=== PATIENT | male | born 1965 | race Caucasian/White ===

== ENCOUNTER 2016-08-09 08:06 | Emergency (ER) | payer MEDICAID ==
[~2016-08-09] VITALS: Ht 170.2 cm; Wt 77.1 kg
[~2016-08-09 08:06] MED LIST: IBUPROFEN600 MG ORAL; IBUPROFEN600 MG PO; NKM; NYSTATIN CREAM15 GM TOPIC; TYLENOL EXTRA500 MG ORAL
[2016-08-09 08:30] VITALS: BP 137/70
--- NOTE | 2016-08-09 08:48 | Emergency Room Report ---
History of Present Illness General Chief Complaint: Upper Respiratory Illness Source: Patient Present Illness HPI Patient presents with 4 days of upper respiratory symptoms. He had sore throat yesterday. He said the cough has been producing some colored phlegm. He denies any wheezing. He does not smoke. He did not receive a flu vaccination this year. Has muscle aches and has been taking Tylenol and Motrin. The last dose was last night. Denies any nausea vomiting diarrhea dysuria. No skin rashes. Allergies: Coded Allergies: No Known Allergies (Unverified , 05/12/12) Patient History Past Medical History: see triage record Social History: Denies: smoking Social History Narrative works making airplane parts Reviewed Nursing Documentation: PMH: Agreed, PSxH: Agreed Nursing Documentation-PMH Past Medical History: No Stated History Review of Systems All Other Systems: negative except mentioned in HPI Physical Exam Vital Signs Date Time Temp Pulse Resp B/P Pulse Ox O2 Delivery O2 Flow Rate FiO2 08/09/16 08:09 98.2 85 22 137/70 100 Room Air Sp02 EP Interpretation: reviewed, normal General Appearance: well appearing, no apparent distress, GCS 15, non-toxic Head: normocephalic, atraumatic Eyes: bilateral eye PERRL, bilateral eye normal inspection ENT: hearing grossly normal, normal voice, TMs + canals normal, pharyngeal erythema Neck: full range of motion, supple Respiratory: lungs clear, normal breath sounds, no respiratory distress, speaking full sentences Gastrointestinal: normal bowel sounds, non tender, soft Musculoskeletal: back normal, digits/nails normal, gait/station normal, normal range of motion Neurologic: alert, oriented x3, normal gait, grossly normal Psychiatric: mood/affect normal Skin: no rash Medical Decision Making Diagnostic Impression: Primary Impression: Upper respiratory infection Qualified Codes: J06.9 - Acute upper respiratory infection, unspecified ER Course Patient presents with 4 days of URI. DDx: flu, bronchitis, viral process. Exam against pneumonia. Will check flu (though late to tx). Imaging not indicated. Lungs clear. Will treat with tylenol and motrin. Flu negative. Improved with treatment. Patient stable for outpatient observation and treatment. Last Vital Signs Date Time Temp Pulse Resp B/P Pulse Ox O2 Delivery O2 Flow Rate FiO2 08/09/16 10:31 98.2 85 22 137/70 100 Room Air Status: improved Disposition: HOME, SELF-CARE Condition: Improved Scripts Chlorpheniramine Maleate (CHLORPHENIRAMINE MALEATE) 4 Mg Tablet 4 MG ORAL Q6HR Y for congestion, #12 TAB 0 Refills Prov: Christiano Rojas M.D. 08/09/16 Codeine/Promethazine Hcl* (PROMETHAZINE-CODEINE SYRUP*) 118 Ml Syrup 5 ML ORAL Q6H Y for For Cough, #60 ML 0 Refills Prov: Christiano Rojas M.D. 08/09/16 Christiano Rojas M.D. Aug 09, 2016 08:48
[2016-08-09] MEDS ORDERED: PROMETHAZINE-C118 M1 ORAL (10:21)
[2016-08-09] MEDS ORDERED: CHLORPHENIRAMINE4 MG ORAL (10:21)
[2016-08-09 10:31] VITALS: BP 137/70
== END 2016-08-09 10:32 | disposition home or self-care (01) ==
LOC: EMR 08:48
DX: J06.9 Acute upper respiratory infection, unspecified (principal)
CPT/HCPCS: 86710; 99284

== ENCOUNTER 2016-11-03 22:47 | Emergency (ER) | payer MEDICAID ==
[~2016-11-03] VITALS: Ht 172.7 cm; Wt 76.2 kg
[~2016-11-03 22:47] MED LIST changes: +CHLORPHENIRAMINE4 MG ORAL; +PROMETHAZINE-C118 M1 ORAL
[2016-11-03] MEDS ORDERED: PredniSONE 20mg tab ORAL ONE (23:15)
[2016-11-03] MEDS ORDERED: PREDNISONE20 MG ORAL (23:16)
[2016-11-03] MEDS ORDERED: BENADRYL25 MG ORAL (23:16)
--- NOTE | 2016-11-03 23:17 | Emergency Room Report ---
History of Present Illness General Chief Complaint: Skin Rash/Abscess Source: Patient Present Illness HPI Is a 51-year-old male with no significant past medical history. He presents with a rash in itchy. Onset for last couple days. Occurred after eating chocolate. He had this problem before. Before he wasn't as bad. Now rashes worse. Itching is worse. Has not take anything for this. No respiratory complaint. No fever chill. No nausea no vomiting. Allergies: Coded Allergies: No Known Allergies (Unverified , 05/12/12) Patient History Past Medical History: see triage record, old chart reviewed Past Surgical History: other Pertinent Family History: none Social History: Denies: smoking Immunizations: other Reviewed Nursing Documentation: PMH: Agreed, PSxH: Agreed Nursing Documentation-PMH Past Medical History: No Stated History Review of Systems Eye: Denies: blurred vision, eye pain ENT: Denies: ear pain, nose congestion, throat swelling Respiratory: Denies: cough, shortness of breath Cardiovascular: Denies: chest pain, palpitations Gastrointestinal: Denies: abdominal pain, diarrhea, nausea, vomiting Musculoskeletal: Denies: back pain, joint pain Skin: Reports: rash Neurological: Denies: headache, numbness Endocrine: Denies: increased thirst, increased urine Hematologic/Lymphatic: Denies: easy bruising All Other Systems: negative except mentioned in HPI Physical Exam Vital Signs Date Time Temp Pulse Resp B/P Pulse Ox O2 Delivery O2 Flow Rate FiO2 11/03/16 22:57 97.5 78 15 126/77 100 Room Air vitals normal Sp02 EP Interpretation: reviewed, normal General Appearance: well appearing, no apparent distress, alert Head: normocephalic, atraumatic Eyes: bilateral eye EOMI, bilateral eye PERRL ENT: hearing grossly normal, normal pharynx Neck: full range of motion, supple, no meningismus Respiratory: chest non-tender, lungs clear, normal breath sounds Cardiovascular #1: regular rate, rhythm, no murmur Gastrointestinal: normal bowel sounds, non tender, no mass, no organomegaly, no bruit, non-distended Musculoskeletal: back normal, gait/station normal, normal range of motion Neurologic: alert, oriented x3 Psychiatric: mood/affect normal Skin: warm/dry, other - Urticarial rash scattered through body but mostly on back Medical Decision Making Diagnostic Impression: Primary Impression: Allergic reaction to food Qualified Codes: T78.1XXA - Other adverse food reactions, not elsewhere classified, initial encounter ER Course Patient presents with allergic reaction to food, specifically chocolate. Told that he cannot have any more in the future. Not even a little. No evidence of respiratory distress. No evidence of anaphylaxis the Last Vital Signs Date Time Temp Pulse Resp B/P Pulse Ox O2 Delivery O2 Flow Rate FiO2 11/03/16 22:57 97.5 78 15 126/77 100 Room Air Status: improved Disposition: HOME, SELF-CARE Condition: Stable Scripts Prednisone* (PREDNISONE*) 20 Mg Tablet 60 MG ORAL DAILY, #9 TAB Prov: HERNÁN HIGGINBOTHAM M.D. 11/03/16 Diphenhydramine Hcl* (BENADRYL*) 25 Mg Capsule 50 MG ORAL Q6H Y for Itching, #30 CAP Prov: HERNÁN HIGGINBOTHAM M.D. 11/03/16 Additional Instructions: Followup with your DrLennox in 2-3 days. Return if worse. You may be allergy testing to see if you are allergic to certain food. HERNÁN HIGGINBOTHAM M.D. Nov 03, 2016 23:17
[2016-11-03 23:30] VITALS: BP 126/77
== END 2016-11-03 23:30 | disposition home or self-care (01) ==
LOC: EMR 23:13
DX: T78.1XXA Other adverse food reactions, not elsewhere classified, initial encounter (principal); X58.XXXA Exposure to other specified factors, initial encounter; Y92.9 Unspecified place or not applicable; Y99.8 Other external cause status
CPT/HCPCS: 99284

== ENCOUNTER 2020-06-21 18:15 | Inpatient (IN) | payer MEDICAID ==
[~2020-06-21] VITALS: Ht 167.6 cm; Wt 83.0 kg
[~2020-06-21 18:15] MED LIST changes: +BENADRYL25 MG ORAL; +PREDNISONE20 MG ORAL
[2020-06-21 19:00] VITALS: BP 132/88
--- NOTE | 2020-06-21 19:36 | Emergency Room Report ---
History of Present Illness General Chief Complaint: Dyspnea/Respdistress Source: Patient Present Illness HPI Patient presents to the hospital for increasing dyspnea. He tested positive for Covid last week. He has been trying to get by at home but has been unable to sleep. He gets extremely winded when he barely moves about the house. He has had fevers that have been untreatable with just ibuprofen. The patient's had vomiting and also diarrhea. He is able to keep down some liquids. The patient feels extremely anxious. Patient does not smoke. He has no diabetes. He does not know if he has hypertension. No sore throat, chest pain, palpitations, dysuria, abdominal pain, joint pain, rashes, dizziness, headache. 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 family members have tested negative Nursing Documentation-[facility] Past Medical History: No Stated History Review of Systems All Other Systems: negative except mentioned in HPI Physical Exam Vital Signs Date Time Temp Pulse Resp B/P (MAP) Pulse Ox O2 Delivery O2 Flow Rate FiO2 06/21/20 18:36 98.1 92 25 138/84 (102) 93 Room Air 06/21/20 19:00 2.0 98 Sp02 EP Interpretation: reviewed, normal General Appearance: well appearing, GCS 15, mild distress - With dyspnea and anxiety Head: normocephalic Eyes: bilateral eye normal inspection, bilateral eye PERRL, bilateral eye EOMI ENT: normal pharynx, moist mucus membranes Neck: supple Respiratory: no wheezing - Slight expiratory phase increase, crackles Cardiovascular #1: regular rate, rhythm Cardiovascular #2: 2+ radial (R) Gastrointestinal: normal inspection, normal bowel sounds, non tender, no mass, non-distended Genitourinary: no CVA tenderness Musculoskeletal: back normal, normal range of motion, gait/station normal Neurologic: alert, oriented x3, grossly normal Psychiatric: anxious Skin: no rash, warm/dry, other - Fully clothed Procedures Critical Care Time Critical Care Time Total Critical Care Time: 30 min bedside evaluation and treatment excludes procedures (EKG). Reason for critical care: Covid pneumonia, hypoxia, repeat evaluations Possible complications: hypotension, hypertension, [place], shock, arrhythmias, metabolic acidosis, end organ damage, respiratory failure. Interventions: Prednisone, azithromycin, Rocephin, oxygen, Ativan Course: Patient presents with dyspnea 1 week after testing positive for COVID- 19. He is hypoxemic. Evaluation for COVID-19 and inflammatory markers undertaken. Patient treated with dexamethasone, Rocephin and azithromycin after x-ray reveals infiltrates. D-dimer minimally elevated. Discussion with respiratory therapy as patient desaturates in the emergency department on nasal cannula. 100% nonrebreather started. Oxygen saturation 97%. Repeat evaluation without wheezes. Some improvement. Discussion with son. Consultations: nursing staff, EMS, family, respiratory therapy Performed by: Dr. Rojas Tolerated well condition = serious Medical Decision Making Diagnostic Impression: Primary Impression: Pneumonia due to COVID-19 virus Additional Impressions: Hypoxia Hypertension Qualified Codes: I10 - Essential (primary) hypertension ER Course Patient presents with known positive Covid and increasing dyspnea and hypoxia. Differential includes bacterial murmur pneumonia, pneumonia, pulmonary embolus amongst others. Patient evaluated with EKG, chest x-ray and labs. Patient treated with Decadron, losartan, Rocephin and azithromycin. Patient begun. Patient needs admission to the hospital. EKG without injury. CXR with infiltrates, R>L. BP elevated 199/98. Given dose of Cozaar. D dimer slightly elevated. Hold on anticoagulation for further evaluation. Desat on 5 liters. 100% non-rebreather mask. 2250 Laboratory Tests Test 06/21/20 19:25 White Blood Count 8.8 K/UL (4.8-10.8) Red Blood Count 4.58 M/UL (4.70-6.10) L Hemoglobin 14.1 G/DL (14.2-18.0) L Hematocrit 38.5 % (42.0-52.0) L Mean Corpuscular Volume 84 FL (80-99) Mean Corpuscular Hemoglobin 30.7 PG (27.0-31.0) Mean Corpuscular Hemoglobin Concent 36.5 G/DL (32.0-36.0) H Red Cell Distribution Width 13.4 % (11.6-14.8) Platelet Count 242 K/UL (150-450) Mean Platelet Volume 7.4 FL (6.5-10.1) Neutrophils (%) (Auto) 85.0 % (45.0-75.0) H Lymphocytes (%) (Auto) 12.2 % (20.0-45.0) L Monocytes (%) (Auto) 2.4 % (1.0-10.0) Eosinophils (%) (Auto) 0.1 % (0.0-3.0) Basophils (%) (Auto) 0.2 % (0.0-2.0) Prothrombin Time 9.8 SEC (9.30-11.50) Prothrombin Time INR 0.9 (0.9-1.1) Activated Partial Thromboplast Time 33 SEC (23-33) D-Dimer 0.70 mg/L FEU (0.00-0.49) H Sodium Level 131 MMOL/L (136-145) L Potassium Level 3.9 MMOL/L (3.5-5.1) Chloride Level 97 MMOL/L (98-107) L Carbon Dioxide Level 24 MMOL/L (21-32) Anion Gap 10 mmol/L (5-15) Blood Urea Nitrogen 13 mg/dL (7-18) Creatinine 1.0 MG/DL (0.55-1.30) Estimated Glomerular Filtration Rate > 60 mL/min (>60) Glucose Level 213 MG/DL (74-106) H Lactic Acid Level 1.10 mmol/L (0.4-2.0) Calcium Level 8.2 MG/DL (8.5-10.1) L Magnesium Level 2.0 MG/DL (1.8-2.4) Ferritin 640 NG/ML (8-388) H Total Bilirubin < 0.1 MG/DL (0.2-1.0) L Aspartate Amino Transferase (AST) 46 U/L (15-37) H Alanine Aminotransferase (ALT) 39 U/L (12-78) Alkaline Phosphatase 156 U/L (46-116) H Lactate Dehydrogenase 324 U/L (81-234) H Total Creatine Kinase 173 U/L (26-308) Creatine Kinase MB < 0.5 NG/ML (0.0-3.6) Creatine Kinase MB Relative Index 0.2 Troponin I 0.000 ng/mL (0.000-0.056) C-Reactive Protein, Quantitative 18.9 mg/dL (0.00-0.90) H Pro-B-Type Natriuretic Peptide 428 pg/mL (0-125) H Total Protein 7.0 G/DL (6.4-8.2) Albumin 2.3 G/DL (3.4-5.0) L Globulin 4.7 g/dL Albumin/Globulin Ratio 0.5 (1.0-2.7) L Lipase 227 U/L (73-393) Microbiology Date/Time Source Procedure Growth Status 06/21/20 20:35 Nasopharynx SARS-CoV-2 RdRp Gene Assay - Final Complete EKG Diagnostic Results Rate: normal Rhythm: NSR ST Segments: no acute changes Rhythm Strip Diag. Results EP Interpretation: yes Rhythm: NSR, no PVC's, no ectopy Chest X-Ray Diagnostic Results Chest X-Ray Diagnostic Results : Chest X-Ray Ordered: Yes # of Views/Limited/Complete: 1 View Indication: Shortness of Breath EP Interpretation: Yes Interpretation: no effusion, no pneumothorax, other - R > L infiltrates Impression: Other Electronically Signed by: Electronically signed by Christiano Rojas MD Last Vital Signs Date Time Temp Pulse Resp B/P (MAP) Pulse Ox O2 Delivery O2 Flow Rate FiO2 06/22/20 00:20 Non-Rebreather 15.0 06/21/20 23:30 97.9 85 22 134/81 95 06/21/20 19:00 98 Status: improved Disposition: ADMITTED INPATIENT Condition: Serious Scripts No Active Prescriptions or Reported Meds Chrisitano Rojas MD Jun 21, 2020 19:36
[2020-06-21] MEDS ORDERED: Azithromycin 500 MG in NS 275 ML IVPB ONE (19:45)
[2020-06-21] MEDS ORDERED: LORazepam Inj 2mg/ml 1ml IV ONE (19:45)
[2020-06-21] MEDS ORDERED: cefTRIAXone 1 GM in NS 55 ML IV ONE (19:45)
[2020-06-21] MEDS ORDERED: dexAMETHasone 10mg/ml Inj IV ONE (19:45)
[2020-06-21] MEDS ORDERED: Losartan 25mg tab ORAL ONE (19:45)
--- NOTE | 2020-06-21 19:45 | Diagnostic Imaging Report ---
EXAM: XR Chest, 1 View CLINICAL HISTORY: DYSPNEA TECHNIQUE: Frontal view of the chest. COMPARISON: No relevant prior studies available. FINDINGS: Lungs: Patchy bilateral peripherally oriented airspace opacities are demonstrated. This is more extensively involving the right lung, particularly the right lung base. Pleural space: Unremarkable. No pneumothorax. Heart: Unremarkable. No cardiomegaly. Mediastinum: Unremarkable. Bones/joints: Unremarkable. IMPRESSION: Patchy bilateral peripheral airspace opacities, right greater than left. Findings can be seen with atypical infectious process such as viral pneumonia in the appropriate clinical setting. Differential also includes pulmonary edema, malignant process, and pulmonary hemorrhage.
[2020-06-21 19:46] LABS: HEMATOCRIT 38.5 % (42.0-52.0); HEMOGLOBIN 14.1 G/DL (14.2-18.0); MEAN CORPUSCULAR VOLUME 84 FL (80-99); PLATELET COUNT 242 K/UL (150-450); RED BLOOD COUNT 4.58 M/UL (4.70-6.10); RED CELL DISTRIBUTION WIDTH 13.4 % (11.6-14.8); WHITE BLOOD COUNT 8.8 K/UL (4.8-10.8)
[2020-06-21 19:49] LABS: ANION GAP 10 mmol/L (5-15); BLOOD UREA NITROGEN 13 mg/dL (7-18); CALCIUM 8.2 MG/DL (8.5-10.1); CARBON DIOXIDE 24 MMOL/L (21-32); CHLORIDE 97 MMOL/L (98-107); POTASSIUM 3.9 MMOL/L (3.5-5.1); SODIUM 131 MMOL/L (136-145)
[2020-06-21 19:54] LABS: BASOPHILS % (AUTO) 0.2 % (0.0-2.0); EOSINOPHILS % (AUTO) 0.1 % (0.0-3.0); LYMPHOCYTES % (AUTO) 12.2 % (20.0-45.0); MONOCYTES % (AUTO) 2.4 % (1.0-10.0)
[2020-06-21 19:56] LABS: INR 0.9 (0.9-1.1)
[2020-06-21 20:05] LABS: ALANINE AMINOTRANSFERASE 39 U/L (12-78); ALBUMIN 2.3 G/DL (3.4-5.0); ALBUMIN/GLOBULIN RATIO 0.5 (1.0-2.7); ALKALINE PHOSPHATASE 156 U/L (46-116); ASPARTATE AMINO TRANSFERASE 46 U/L (15-37); BILIRUBIN,TOTAL < 0.1 MG/DL (0.2-1.0); CKMB < 0.5 NG/ML (0.0-3.6); CREATINE KINASE 173 U/L (26-308); FERRITIN 640 NG/ML (8-388); LACTATE DEHYDROGENASE 324 U/L (81-234)
[2020-06-21 21:49] VITALS: BP 130/80
[2020-06-21] MEDS ORDERED: guaiFENesin w/Codeine 5ml Liq ud ORAL PRN (23:00)
[2020-06-22] MEDS ORDERED: Acetaminophen 500mg (ES) tab ORAL PRN
[2020-06-22 04:00] VITALS: BP 139/74
[2020-06-22 06:02] LABS: HEMATOCRIT 38.4 % (42.0-52.0); MEAN CORPUSCULAR VOLUME 84 FL (80-99); PLATELET COUNT 256 K/UL (150-450); RED BLOOD COUNT 4.58 M/UL (4.70-6.10); WHITE BLOOD COUNT 8.5 K/UL (4.8-10.8)
--- NOTE | 2020-06-22 07:45 | Consultation ---
DATE OF CONSULTATION: 06/22/2020 PULMONARY CONSULTATION CONSULTING PHYSICIAN: Slava Maravilla MD. HISTORY OF PRESENT ILLNESS: This is a 54-year-old male, who came to the hospital for shortness of breath. The patient has tested positive for COVID. He states he is very short of breath. He has myalgias, fatigue. He also reported vomiting as well as diarrhea. The patient does not have any known past history such as hypertension or diabetes mellitus. HOME MEDICATIONS: Not known. REVIEW OF SYSTEMS: Denies any headaches, hematemesis, melena, hematochezia, night sweats, or weight loss. PHYSICAL EXAMINATION: GENERAL: Reveals a 54-year-old male. VITAL SIGNS: Blood pressure is 130/70, heart rate , respirations 18, O2 saturation 95% non-rebreather mask. HEENT: Unremarkable. LUNGS: Clear breath sounds bilaterally. ABDOMEN: Soft. EXTREMITIES: There is no edema. LABORATORY AND DIAGNOSTIC DATA: Lab testing shows hemoglobin of 14, glucose 213, ferritin 640. AST 46, ALT 324, alkaline phosphatase 156. CRP 18. Coags, D-dimer 0.7. X-ray chest was obtained, which shows bilateral patchy infiltrates. IMPRESSION: 1. COVID-19 pneumonia. 2. Elevated inflammatory markers. 3. Hypoxemia. 4. Hyperglycemia. DISCUSSION: Admit to the hospital. Continue non-rebreather mask. We will initiate Decadron, broad-spectrum antibiotics, IV fluids, Lovenox for DVT prophylaxis. Defer use of remdesivir to ID specialist. We will follow. Slava Maravilla M.D. DR: TAQUERIA JOB#: [id number] CC:
[2020-06-22 08:00] VITALS: BP 128/81
[2020-06-22] MEDS: Enoxaparin 40mg Inj SUBQ SCH (08:27)
[2020-06-22 11:04] LABS: ALANINE AMINOTRANSFERASE 36 U/L (12-78); ALBUMIN 1.9 G/DL (3.4-5.0); ALBUMIN/GLOBULIN RATIO 0.4 (1.0-2.7); ALKALINE PHOSPHATASE 125 U/L (46-116); ANION GAP 10 mmol/L (5-15); ASPARTATE AMINO TRANSFERASE 40 U/L (15-37); BILIRUBIN,TOTAL 0.3 MG/DL (0.2-1.0); BLOOD UREA NITROGEN 18 mg/dL (7-18); CALCIUM 7.7 MG/DL (8.5-10.1); CARBON DIOXIDE 22 MMOL/L (21-32); CHLORIDE 99 MMOL/L (98-107); POTASSIUM 4.3 MMOL/L (3.5-5.1); SODIUM 131 MMOL/L (136-145)
[2020-06-22 12:00] VITALS: BP 117/61
[2020-06-22] MEDS: guaiFENesin 100mg/5ml Liq ud ORAL PRN ×2 (12:08→23:14)
--- NOTE | 2020-06-22 12:31 | Pulmonology Progress Note ---
Subjective Interval Events: none major; subjectively feels better Constitutional: Reports: no symptoms HEENT: Repors: no symptoms Respiratory: Reports: dry cough Cardiovascular: Reports: no symptoms Gastrointestinal/Abdominal: Reports: no symptoms Allergies: Coded Allergies: No Known Allergies (Unverified , 05/12/12) Objective Last 24 Hour Vital Signs Date Time Temp Pulse Resp B/P (MAP) Pulse Ox O2 Delivery O2 Flow Rate FiO2 06/22/20 12:00 97.3 71 19 117/61 (79) 99 06/22/20 09:00 Non-Rebreather 15.0 06/22/20 08:00 97.7 71 18 128/81 (97) 98 06/22/20 04:00 97.8 74 18 139/74 (95) 98 06/22/20 00:20 Non-Rebreather 15.0 06/21/20 23:30 97.9 85 22 134/81 95 Non-Rebreather 15.0 06/21/20 21:49 98.4 82 18 130/80 98 Room Air 06/21/20 20:29 88 18 160/80 98 06/21/20 19:51 95 23 132/88 98 06/21/20 19:51 132/88 06/21/20 19:00 98.1 95 23 132/88 98 Nasal Cannula 2.0 06/21/20 19:00 95 23 Nasal Cannula 2.0 98 06/21/20 18:36 98.1 92 25 138/84 (102) 93 Room Air Intake and Output 06/21/20 06/22/20 18:59 06:59 Intake Total 0 ml Balance 0 ml Intake Oral 0 ml # Voids 2 Objective 06/22/2020 saturating well on NRB 15 L General Appearance: WD/WN, no acute distress HEENT: normocephalic, atraumatic Respiratory: chest wall non-tender, lungs clear Cardiovascular: normal rate, regular rhythm, no gallop/murmur Abdomen: soft, non tender Microbiology Date/Time Source Procedure Growth Status 06/21/20 20:35 Nasopharynx SARS-CoV-2 RdRp Gene Assay - Final Complete Laboratory Tests 06/21/20 19:25: White Blood Count 8.8, Red Blood Count 4.58L, Hemoglobin 14.1L, Hematocrit 38.5L , Mean Corpuscular Volume 84, Mean Corpuscular Hemoglobin 30.7, Mean Corpuscular Hemoglobin Concent 36.5H, Red Cell Distribution Width 13.4, Platelet Count 242, Mean Platelet Volume 7.4, Neutrophils (%) (Auto) 85.0H, Lymphocytes (%) (Auto) 12.2L, Monocytes (%) (Auto) 2.4, Eosinophils (%) (Auto) 0.1, Basophils (%) (Auto) 0.2, Prothrombin Time 9.8, Prothromb Time International Ratio 0.9, Activated Partial Thromboplast Time 33, D-Dimer 0.70H, Sodium Level 131L, Potassium Level 3.9, Chloride Level 97L, Carbon Dioxide Level 24, Anion Gap 10, Blood Urea Nitrogen 13, Creatinine 1.0, Estimat Glomerular Filtration Rate > 60, Glucose Level 213H, Lactic Acid Level 1.10, Calcium Level 8.2L, Magnesium Level 2.0, Ferritin 640H, Total Bilirubin < 0.1L, Aspartate Amino Transf (AST/SGOT) 46H, Alanine Aminotransferase (ALT/SGPT) 39, Alkaline Phosphatase 156H, Lactate Dehydrogenase 324H, Total Creatine Kinase 173, Creatine Kinase MB < 0.5, Creatine Kinase MB Relative Index 0.2, Troponin I 0.000, C-Reactive Protein, Quantitative 18.9H, Pro-B-Type Natriuretic Peptide 428H, Total Protein 7.0, Albumin 2.3L, Globulin 4.7, Albumin/Globulin Ratio 0.5L, Lipase 227 06/22/20 04:25: White Blood Count 8.5, Red Blood Count 4.58L, Hemoglobin 14.0L, Hematocrit 38.4L , Mean Corpuscular Volume 84, Mean Corpuscular Hemoglobin 30.6, Mean Corpuscular Hemoglobin Concent 36.5H, Red Cell Distribution Width 13.0, Platelet Count 256, Mean Platelet Volume 6.8, Neutrophils (%) (Auto) , Lymphocytes (%) (Auto) , Monocytes (%) (Auto) , Eosinophils (%) (Auto) , Basophils (%) (Auto) , Differential Total Cells Counted 100, Neutrophils % (Manual) 89H, Lymphocytes % (Manual) 9L, Monocytes % (Manual) 2, Eosinophils % (Manual) 0, Basophils % (Manual) 0, Band Neutrophils 0, Platelet Estimate Adequate, Platelet Morphology Normal, Red Blood Cell Morphology Normal 06/22/20 09:15: Sodium Level 131L, Potassium Level 4.3, Chloride Level 99, Carbon Dioxide Level 22, Anion Gap 10, Blood Urea Nitrogen 18, Creatinine 1.0, Estimat Glomerular Filtration Rate > 60, Glucose Level 371#H, Calcium Level 7.7L, Total Bilirubin 0.3, Aspartate Amino Transf (AST/SGOT) 40H, Alanine Aminotransferase (ALT/SGPT) 36, Alkaline Phosphatase 125H, Total Protein 6.3L, Albumin 1.9L, Globulin 4.4, Albumin/Globulin Ratio 0.4L Current Medications Medications (Trade) Dose Ordered Sig/Swetha Route PRN Reason Start Time Stop Time Status Last Admin Dose Admin Acetaminophen (Tylenol) 500 mg Q4H PRN ORAL Mild Pain (Pain Scale 1-3) 06/22/20 00:00 07/22/20 00:00 Dexamethasone Sodium Phosphate (Decadron 4mg/ml vial) 6 mg DAILY IVP 06/22/20 09:00 09/20/20 08:59 06/22/20 08:26 Enoxaparin Sodium (Lovenox) 40 mg DAILY SUBQ 06/22/20 09:00 09/20/20 08:59 06/22/20 08:27 Guaifenesin (Robitussin) 100 mg Q4H PRN ORAL For Cough 06/22/20 11:45 09/20/20 11:44 06/22/20 12:08 Assessment/Plan Assessment/Plan 1. COVID-19 pneumonia. - CXR 06/21/2020 Patchy bilateral peripheral airspace opacities, right greater than left. - Cont NRB mask - on Decadron - on broad-spectrum Abx - On IVF -Defer use of remdesivir to ID specialist 2. Elevated inflammatory markers. 3. Hypoxemia. 4. Hyperglycemia. DVT PPx -Lovenox We will follow. The care of this patient was discussed with my supervising physician Time spent for this encounter was approximately 31 minutes The patient was seen and examined at bedside and all new and available data was reviewed in the patients chart. I agree with the above findings, impression, and plan. (Patient was seen earlier today. Signature timestamp does not reflect patient encounter time) Colt Flores MD Jun 22, 2020 12:31 Slava Maravilla MD Jun 22, 2020 18:20
[2020-06-22 16:00] VITALS: BP 133/71
[2020-06-22] MEDS ORDERED: Loading Dose:Remdesivir 200mg/NS 210ml IV SCH ×2 (18:00)
--- NOTE | 2020-06-22 18:45 | Consultation ---
DATE OF CONSULTATION: 06/22/2020 INFECTIOUS DISEASE CONSULT PRIMARY ATTENDING PHYSICIAN: Aidan Bowman M.D. REASON FOR CONSULT: COVID-19 pneumonia. HISTORY OF PRESENT ILLNESS: The patient is a 54-year-old male admitted yesterday from home complaining of shortness of breath. He was tested positive for COVID since last week. He had fatigue, malaise, diarrhea. He was found to be hypoxemic and hyperglycemic. PAST MEDICAL HISTORY: The patient denies any medical history. ALLERGIES: No known drug allergies. MEDICATIONS: Enoxaparin, dexamethasone, thiamin, guaifenesin. Got a dose of ceftriaxone and azithromycin in the ER. SOCIAL HISTORY: . Denies alcohol, drug abuse, or smoking. REVIEW OF SYSTEMS: As history of present illness. PHYSICAL EXAMINATION: VITAL SIGNS: Temperature 97.3, pulse 71, blood pressure 117/61. GENERAL APPEARANCE: Well developed. HEAD AND NECK: [place] conjunctivae. HEART: Normal rate. LUNGS: Decreased sounds. Getting oxygen at 15 L/min. ABDOMEN: Obese, soft. EXTREMITIES: No edema. NEUROLOGIC: He is awake, alert, oriented x3. LABORATORY AND DIAGNOSTIC DATA: WBC 8.5, hemoglobin 14.0, hematocrit 38.4, platelets 256. Sodium 131, potassium 4.3, chloride 99, bicarb 22, BUN 18, creatinine 1, glucose is 371, AST 40, ALT 36, alkaline phosphatase is 125. Albumin is 1.9. IMPRESSION: 1. COVID-19 disease, seems severe. The patient is hypoxemic. 2. Hyperglycemia, likely underlying diabetes mellitus. 3. Hypertension. 4. Hyponatremia. 5. Lymphopenia. RECOMMENDATIONS: Continue dexamethasone. We will start remdesivir. Consider hypoglycemic agent. We will follow up the clinical course. At the end of my exam, I thank Dr. Bowman for involving me in the care of this patient. Stevenson Buckley M.D. DR: IRINA JOB#: [id number] CC:
[2020-06-22 20:00] VITALS: BP 124/78
--- NOTE | 2020-06-22 21:30 | History and Physical Report ---
DATE OF ADMISSION: 06/21/2020 HISTORY OF PRESENT ILLNESS: The patient comes with increasing dyspnea. The patient was positive for coronavirus apparently about a week ago. The patient also had elevated D-dimer. The patient could not stay at home due to shortness of breath. He is short-winded. The patient also has fever and chills, was admitted for COVID-positive pneumonia. PAST MEDICAL HISTORY: Recent history of COVID. He has a history of hypertension. PAST SURGICAL HISTORY: None. ALLERGIES: No known allergies. MEDICATIONS: None. FAMILY HISTORY: Noncontributory. SOCIAL HISTORY: Denies history of smoking. Denies history of alcohol or illicit drugs. REVIEW OF SYSTEMS: HEENT: Denies headaches. RESPIRATORY: Reports shortness of breath and cough. CARDIOVASCULAR: Denies chest pain or orthopnea. GASTROINTESTINAL: Denies nausea, vomiting, or diarrhea. EXTREMITIES: Denies pain. NEUROLOGIC: Denies change in speech pattern. Feels weak, generalized. PHYSICAL EXAMINATION: VITAL SIGNS: Temperature 97.8, pulse 74, blood pressure 139/74. HEENT: PERRLA. CHEST: Clear to auscultation. CARDIOVASCULAR: Regular rate and rhythm. No murmurs or extra sounds. GASTROINTESTINAL: Soft, nontender, nondistended. No organomegaly. EXTREMITIES: No edema. He is able to move his extremities. Reflexes in both sides. LABORATORY DATA: WBC of 8.8, hemoglobin of 14.1, platelets of 242. Sodium 131, potassium of 3.9, BUN of 13, creatinine 1, glucose of 213. ASSESSMENT AND PLAN: Respiratory insufficiency, COVID-positive pneumonia, elevated D-dimer, and oxygen. I have consulted Dr. Slava Maravilla, Dr. Stevenson Buckley, Dr. Rebel Lainez for the management of the elevated D-dimer as well as for management of COVID pneumonia. Antibiotics per Dr. Buckley. Aidan Bwoman M.D. DR: MICHEAL JOB#: [id number] CC:
[2020-06-23] VITALS: BP 123/70
[2020-06-23 04:00] VITALS: BP 121/68
[2020-06-23 07:06] LABS: BASOPHILS % (AUTO) 0.2 % (0.0-2.0); EOSINOPHILS % (AUTO) 0.1 % (0.0-3.0); HEMATOCRIT 38.1 % (42.0-52.0); HEMOGLOBIN 13.6 G/DL (14.2-18.0); LYMPHOCYTES % (AUTO) 9.9 % (20.0-45.0); MEAN CORPUSCULAR VOLUME 85 FL (80-99); MONOCYTES % (AUTO) 6.5 % (1.0-10.0); NEUTROPHILS % (AUTO) 83.5 % (45.0-75.0); PLATELET COUNT 308 K/UL (150-450); RED CELL DISTRIBUTION WIDTH 13.9 % (11.6-14.8); WHITE BLOOD COUNT 9.8 K/UL (4.8-10.8)
[2020-06-23 07:19] LABS: ALANINE AMINOTRANSFERASE 39 U/L (12-78); ALBUMIN/GLOBULIN RATIO 0.5 (1.0-2.7); ALKALINE PHOSPHATASE 154 U/L (46-116); ANION GAP 10 mmol/L (5-15); ASPARTATE AMINO TRANSFERASE 36 U/L (15-37); BILIRUBIN,TOTAL 0.4 MG/DL (0.2-1.0); BLOOD UREA NITROGEN 26 mg/dL (7-18); CALCIUM 8.5 MG/DL (8.5-10.1); CARBON DIOXIDE 23 MMOL/L (21-32); CHLORIDE 100 MMOL/L (98-107); POTASSIUM 4.3 MMOL/L (3.5-5.1); SODIUM 133 MMOL/L (136-145)
[2020-06-23 08:00] VITALS: BP 125/71
[2020-06-23] MEDS: Enoxaparin 40mg Inj SUBQ SCH (10:02)
[2020-06-23 12:00] VITALS: BP 120/69
--- NOTE | 2020-06-23 12:51 | Pulmonology Progress Note ---
Subjective Interval Events: none major; subjectively feels better Constitutional: Reports: no symptoms HEENT: Repors: no symptoms Respiratory: Reports: dry cough - improving Cardiovascular: Reports: no symptoms Gastrointestinal/Abdominal: Reports: no symptoms Allergies: Coded Allergies: No Known Allergies (Unverified , 05/12/12) Objective Last 24 Hour Vital Signs Date Time Temp Pulse Resp B/P (MAP) Pulse Ox O2 Delivery O2 Flow Rate FiO2 06/23/20 09:00 Non-Rebreather 15.0 06/23/20 08:00 98.2 84 18 125/71 (89) 95 06/23/20 04:00 98.2 85 18 121/68 (85) 92 06/23/20 00:00 98.4 85 18 123/70 (87) 96 06/22/20 21:00 Non-Rebreather 15.0 06/22/20 20:00 98.2 85 18 124/78 (93) 95 06/22/20 16:00 98.2 74 18 133/71 (91) 98 Intake and Output 06/22/20 06/23/20 19:00 07:00 Intake Total 350 ml 750 ml Balance 350 ml 750 ml Intake Oral 350 ml 750 ml # Voids 3 4 Objective 06/22/2020 saturating well on NRB 12L; s/p failed attempt of 4 lpm NC, desaturated down to 89-90%, per RN; cont attempt weaning down oxygen while keeping SaO2 >92% 06/23/2020 saturating well on NRB 12L; s/p failed attempt of 4 lpm NC, desaturated down to 89-90%, per RN; cont attempt weaning down oxygen while marshall ping SaO2 >92% 06/22/2020 saturating well on NRB 15 L General Appearance: WD/WN, no acute distress HEENT: normocephalic, atraumatic Respiratory: chest wall non-tender, lungs clear Cardiovascular: normal rate, regular rhythm, no gallop/murmur Abdomen: soft, non tender Microbiology Date/Time Source Procedure Growth Status 06/21/20 20:35 Nasopharynx SARS-CoV-2 RdRp Gene Assay - Final Complete Laboratory Tests 06/23/20 04:15: White Blood Count 9.8, Red Blood Count 4.50L, Hemoglobin 13.6L, Hematocrit 38.1L , Mean Corpuscular Volume 85, Mean Corpuscular Hemoglobin 30.2, Mean Corpuscular Hemoglobin Concent 35.7, Red Cell Distribution Width 13.9, Platelet Count 308, Mean Platelet Volume 6.8, Neutrophils (%) (Auto) 83.5H, Lymphocytes (%) (Auto) 9.9L, Monocytes (%) (Auto) 6.5, Eosinophils (%) (Auto) 0.1, Basophils (%) (Auto) 0.2, Sodium Level 133L, Potassium Level 4.3, Chloride Level 100, Carbon Dioxide Level 23, Anion Gap 10, Blood Urea Nitrogen 26H, Creatinine 1.0, Estimat Glomerular Filtration Rate > 60, Glucose Level 462H, Hemoglobin A1c 10.7H, Ca lcium Level 8.5, Total Bilirubin 0.4, Direct Bilirubin < 0.1, Aspartate Amino Transf (AST/SGOT) 36, Alanine Aminotransferase (ALT/SGPT) 39, Alkaline Phosphatase 154H, Total Protein 6.4, Albumin 2.0L, Globulin 4.4, Albumin/Globulin Ratio 0.5L Current Medications Medications (Trade) Dose Ordered Sig/Swetha Route PRN Reason Start Time Stop Time Status Last Admin Dose Admin Acetaminophen (Tylenol) 500 mg Q4H PRN ORAL Mild Pain (Pain Scale 1-3) 06/22/20 00:00 07/22/20 00:00 Dexamethasone Sodium Phosphate (Decadron 4mg/ml vial) 6 mg DAILY IVP 06/22/20 09:00 06/30/20 09:01 06/23/20 10:02 Enoxaparin Sodium (Lovenox) 40 mg DAILY SUBQ 06/22/20 09:00 09/20/20 08:59 06/23/20 10:02 Guaifenesin (Robitussin) 100 mg Q4H PRN ORAL For Cough 06/22/20 11:45 09/20/20 11:44 06/22/20 23:14 Remdesivir 100 mg/ Sodium Chloride 250 ml @ 250 mls/hr Q24H IV 06/23/20 18:00 06/26/20 18:59 Assessment/Plan Assessment/Plan 1. COVID-19 pneumonia. - CXR 06/21/2020 Patchy bilateral peripheral airspace opacities, right greater than left. - saturating well on NRB 12L; s/p failed attempt of 4 lpm NC, desaturated down to 89-90%, per RN; cont attempt weaning down oxygen while keeping SaO2 >92% - on Decadron - s/p broad-spectrum Abx - Defer use of remdesivir to ID specialist 2. Elevated inflammatory markers. 3. Hypoxemia. 4. Hyperglycemia. DVT PPx -Lovenox We will follow. The care of this patient was discussed with my supervising physician Time spent for this encounter was approximately 31 minutes The patient was seen and examined at bedside and all new and available data was reviewed in the patients chart. I agree with the above findings, impression, and plan. (Patient was seen earlier today. Signature timestamp does not reflect patient encounter time) Colt Flores MD Jun 23, 2020 12:51 Slava Maravilla MD Jun 23, 2020 16:54
[2020-06-23 16:00] VITALS: BP 122/77
[2020-06-23] MEDS: Maintenance Dose:Remdesivir 100mg/NS 230ml x 4 Doses IV SCH ×2 (18:18)
[2020-06-23 20:00] VITALS: BP 135/70
[2020-06-23] MEDS: guaiFENesin 100mg/5ml Liq ud ORAL PRN (21:37)
--- NOTE | 2020-06-23 22:31 | General Progress Note ---
Subjective ROS Limited/Unobtainable: Yes Allergies: Coded Allergies: No Known Allergies (Unverified , 05/12/12) Objective Last 24 Hour Vital Signs Date Time Temp Pulse Resp B/P (MAP) Pulse Ox O2 Delivery O2 Flow Rate FiO2 06/23/20 21:00 Non-Rebreather 15.0 06/23/20 20:00 97.5 72 18 135/70 (91) 92 06/23/20 16:15 94 06/23/20 16:00 97.5 72 18 122/77 (92) 90 06/23/20 12:00 96.9 76 18 120/69 (86) 95 06/23/20 09:00 Non-Rebreather 15.0 06/23/20 08:00 98.2 84 18 125/71 (89) 95 06/23/20 04:00 98.2 85 18 121/68 (85) 92 06/23/20 00:00 98.4 85 18 123/70 (87) 96 Intake and Output 06/22/20 06/23/20 19:00 07:00 Intake Total 350 ml 750 ml Balance 350 ml 750 ml Intake Oral 350 ml 750 ml # Voids 3 4 Laboratory Tests 06/23/20 04:15: White Blood Count 9.8, Red Blood Count 4.50L, Hemoglobin 13.6L, Hematocrit 38.1L , Mean Corpuscular Volume 85, Mean Corpuscular Hemoglobin 30.2, Mean Corpuscular Hemoglobin Concent 35.7, Red Cell Distribution Width 13.9, Platelet Count 308, Mean Platelet Volume 6.8, Neutrophils (%) (Auto) 83.5H, Lymphocytes (%) (Auto) 9.9L, Monocytes (%) (Auto) 6.5, Eosinophils (%) (Auto) 0.1, Basophils (%) (Auto) 0.2, Sodium Level 133L, Potassium Level 4.3, Chloride Level 100, Carbon Dioxide Level 23, Anion Gap 10, Blood Urea Nitrogen 26H, Creatinine 1.0, Estimat Glomerular Filtration Rate > 60, Glucose Level 462H, Hemoglobin A1c 10.7H, Calcium Level 8.5, Total Bilirubin 0.4, Direct Bilirubin < 0.1, Aspartate Amino Transf (AST/SGOT) 36, Alanine Aminotransferase (ALT/SGPT) 39, Alkaline Phosphatase 154H, Total Protein 6.4, Albumin 2.0L, Globulin 4.4, Albumin/Globulin Ratio 0.5L Height (Feet): 5 Height (Inches): 6.00 Weight (Pounds): 183 Assessment/Plan Problem List: (1) Hypoxia ICD Codes: R09.02 - Hypoxemia; J12.89 - Other viral pneumonia SNOMED: 475996041 (2) Pneumonia due to COVID-19 virus ICD Codes: U07.1 - COVID-19; J12.89 - Other viral pneumonia SNOMED: 751177409329969804 (3) Hypertension ICD Codes: I10 - Essential (primary) hypertension SNOMED: 51468306 Qualifiers: Qualified Codes: I10 - Essential (primary) hypertension (4) Upper respiratory infection ICD Codes: J06.9 - Acute upper respiratory infection, unspecified SNOMED: 02025026 Status: progressing Assessment/Plan: afebrile covid positive pna resp insuff weak prn supportive rx Aidan Bowman MD Jun 23, 2020 22:31
[2020-06-24] VITALS: BP 127/72
[2020-06-24 04:00] VITALS: BP 124/78
[2020-06-24 07:08] LABS: BASOPHILS % (AUTO) 0.4 % (0.0-2.0); EOSINOPHILS % (AUTO) 0.1 % (0.0-3.0); HEMOGLOBIN 14.6 G/DL (14.2-18.0); LYMPHOCYTES % (AUTO) 13.5 % (20.0-45.0); MEAN CORPUSCULAR VOLUME 88 FL (80-99); MONOCYTES % (AUTO) 8.8 % (1.0-10.0); NEUTROPHILS % (AUTO) 77.3 % (45.0-75.0); PLATELET COUNT 365 K/UL (150-450); RED BLOOD COUNT 4.79 M/UL (4.70-6.10); RED CELL DISTRIBUTION WIDTH 12.3 % (11.6-14.8); WHITE BLOOD COUNT 10.2 K/UL (4.8-10.8)
[2020-06-24 07:55] LABS: ALANINE AMINOTRANSFERASE 41 U/L (12-78); ALBUMIN 2.3 G/DL (3.4-5.0); ALBUMIN/GLOBULIN RATIO 0.5 (1.0-2.7); ALKALINE PHOSPHATASE 144 U/L (46-116); ANION GAP 10 mmol/L (5-15); ASPARTATE AMINO TRANSFERASE 28 U/L (15-37); BILIRUBIN,DIRECT 0.1 MG/DL (0.0-0.3); BILIRUBIN,TOTAL 0.5 MG/DL (0.2-1.0); BLOOD UREA NITROGEN 27 mg/dL (7-18); CALCIUM 9.2 MG/DL (8.5-10.1); CARBON DIOXIDE 24 MMOL/L (21-32); CHLORIDE 99 MMOL/L (98-107); CREATININE 0.9 MG/DL (0.55-1.30); POTASSIUM 4.2 MMOL/L (3.5-5.1); SODIUM 133 MMOL/L (136-145)
[2020-06-24 08:00] VITALS: BP 120/89
[2020-06-24] MEDS: Enoxaparin 40mg Inj SUBQ SCH (09:27)
--- NOTE | 2020-06-24 10:42 | Pulmonology Progress Note ---
Subjective ROS Limited/Unobtainable: Yes Interval Events: now on Venturi mask 55% FiO2 15L saturating at 92-94% Constitutional: Reports: no symptoms HEENT: Repors: no symptoms Respiratory: Reports: dry cough - improving Cardiovascular: Reports: no symptoms Gastrointestinal/Abdominal: Reports: no symptoms Allergies: Coded Allergies: No Known Allergies (Unverified , 05/12/12) Objective Last 24 Hour Vital Signs Date Time Temp Pulse Resp B/P (MAP) Pulse Ox O2 Delivery O2 Flow Rate FiO2 06/24/20 08:00 97.3 70 20 120/89 (99) 94 06/24/20 04:00 97.5 74 20 124/78 (93) 92 06/24/20 00:00 97.1 72 21 127/72 (90) 92 06/23/20 21:00 Venturi Mask 15.0 06/23/20 20:00 97.5 72 18 135/70 (91) 92 06/23/20 16:15 94 06/23/20 16:00 97.5 72 18 122/77 (92) 90 06/23/20 12:00 96.9 76 18 120/69 (86) 95 Intake and Output 06/23/20 06/24/20 19:00 07:00 Intake Total 1650 ml Balance 1650 ml Intake Oral 850 ml Other 800 ml # Voids 3 # Bowel Movements 1 Objective 06/22/2020 saturating well on NRB 12L; s/p failed attempt of 4 lpm NC, desaturated down to 89-90%, per RN; cont attempt weaning down oxygen while keeping SaO2 >92% 06/23/2020 saturating well on NRB 12L; s/p failed attempt of 4 lpm NC, desaturated down to 89-90%, per RN; cont attempt weaning down oxygen while keeping SaO2 >92% 06/22/2020 saturating well on NRB 15 L General Appearance: WD/WN, no acute distress HEENT: normocephalic, atraumatic Respiratory: chest wall non-tender, lungs clear Cardiovascular: normal rate, regular rhythm, no gallop/murmur Abdomen: soft, non tender Microbiology Date/Time Source Procedure Growth Status 06/21/20 20:35 Nasopharynx SARS-CoV-2 RdRp Gene Assay - Final Complete 06/21/20 18:57 Blood Blood Culture - Preliminary NO GROWTH AFTER 48 HOURS Resulted 06/21/20 18:47 Blood Blood Culture - Preliminary NO GROWTH AFTER 48 HOURS Resulted Laboratory Tests 06/24/20 04:35: White Blood Count 10.2, Red Blood Count 4.79, Hemoglobin 14.6, Hematocrit 42.0, Mean Corpuscular Volume 88, Mean Corpuscular Hemoglobin 30.4, Mean Corpuscular Hemoglobin Concent 34.6, Red Cell Distribution Width 12.3, Platelet Count 365, Mean Platelet Volume 6.5, Neutrophils (%) (Auto) 77.3H, Lymphocytes (%) (Auto) 13.5L, Monocytes (%) (Auto) 8.8, Eosinophils (%) (Auto) 0.1, Basophils (%) (Auto) 0.4, Sodium Level 133L, Potassium Level 4.2, Chloride Level 99, Carbon Dioxide Level 24, Anion Gap 10, Blood Urea Nitrogen 27H, Creatinine 0.9, Estimat Glomerular Filtration Rate > 60, Glucose Level 332#H, Calcium Level 9.2, Total Bilirubin 0.5, Direct Bilirubin 0.1, Aspartate Amino Transf (AST/SGOT) 28, Alanine Aminotransferase (ALT/SGPT) 41, Alkaline Phosphatase 144H, Total Protein 6.6, Albumin 2.3L, Globulin 4.3, Albumin/Globulin Ratio 0.5L Current Medications Medications (Trade) Dose Ordered Sig/Swetha Route PRN Reason Start Time Stop Time Status Last Admin Dose Admin Acetaminophen (Tylenol) 500 mg Q4H PRN ORAL Mild Pain (Pain Scale 1-3) 06/22/20 00:00 07/22/20 00:00 Dexamethasone Sodium Phosphate (Decadron 4mg/ml vial) 6 mg DAILY IVP 06/22/20 09:00 06/30/20 09:01 06/24/20 09:27 Enoxaparin Sodium (Lovenox) 40 mg DAILY SUBQ 06/22/20 09:00 09/20/20 08:59 06/24/20 09:27 Guaifenesin (Robitussin) 100 mg Q4H PRN ORAL For Cough 06/22/20 11:45 09/20/20 11:44 06/23/20 21:37 Remdesivir 100 mg/ Sodium Chloride 250 ml @ 250 mls/hr Q24H IV 06/23/20 18:00 06/26/20 18:59 06/23/20 18:18 Assessment/Plan Assessment/Plan 1. COVID-19 pneumonia. - CXR 06/21/2020 Patchy bilateral peripheral airspace opacities, right greater than left. - s/p NRB 12L; s/p failed attempt of 4 lpm NC, desaturated down to 89-90%, per RN; - now on 15L oxygen via Venturi mask at FiO2 55%; saturating at 92-94% - on Decadron - s/p broad-spectrum Abx - On remdesivir per ID 2. Elevated inflammatory markers. 3. Hypoxemia. 4. Hyperglycemia. DVT PPx -Lovenox We will follow. The care of this patient was discussed with my supervising physician Time spent for this encounter was approximately 31 minutes The patient was seen and examined at bedside and all new and available data was reviewed in the patients chart. I agree with the above findings, impression, and plan. (Patient was seen earlier today. Signature timestamp does not reflect patient encounter time) Colt Flores MD Jun 24, 2020 10:42 Slava Maravilla MD Jun 24, 2020 17:11
--- NOTE | 2020-06-24 11:58 | Infectious Diseases Prog Note ---
Assessment/Plan Assessment/Plan IMPRESSION: 1. COVID-19 disease, seems severe. The patient is hypoxemic. 2. Hyperglycemia, likely underlying diabetes mellitus. 3. Hypertension. 4. Hyponatremia. 5. Lymphopenia. RECOMMENDATIONS: Continue dexamethasone. Continue Remdesivir. Subjective ROS Limited/Unobtainable: No Constitutional: Reports: no symptoms Respiratory: Reports: shortness of breath, dry cough Gastrointestinal/Abdominal: Reports: no symptoms Genitourinary: Reports: no symptoms Allergies: Coded Allergies: No Known Allergies (Unverified , 05/12/12) Objective Last 24 Hour Vital Signs Date Time Temp Pulse Resp B/P (MAP) Pulse Ox O2 Delivery O2 Flow Rate FiO2 06/24/20 08:00 97.3 70 20 120/89 (99) 94 06/24/20 04:00 97.5 74 20 124/78 (93) 92 06/24/20 00:00 97.1 72 21 127/72 (90) 92 06/23/20 21:00 Venturi Mask 15.0 06/23/20 20:00 97.5 72 18 135/70 (91) 92 06/23/20 16:15 94 06/23/20 16:00 97.5 72 18 122/77 (92) 90 06/23/20 12:00 96.9 76 18 120/69 (86) 95 Height (Feet): 5 Height (Inches): 6.00 Weight (Pounds): 183 General Appearance: no acute distress HEENT: mucous membranes moist Respiratory/Chest: decreased breath sounds, other - oxygen by ventuti mask Cardiovascular: normal rate Abdomen: soft, non tender Extremities: no edema Neurologic/Psychiatric: alert, oriented x 3, responsive Microbiology Date/Time Source Procedure Growth Status 06/21/20 20:35 Nasopharynx SARS-CoV-2 RdRp Gene Assay - Final Complete 06/21/20 18:57 Blood Blood Culture - Preliminary NO GROWTH AFTER 48 HOURS Resulted 06/21/20 18:47 Blood Blood Culture - Preliminary NO GROWTH AFTER 48 HOURS Resulted Laboratory Tests Test 06/24/20 04:35 White Blood Count 10.2 K/UL (4.8-10.8) Red Blood Count 4.79 M/UL (4.70-6.10) Hemoglobin 14.6 G/DL (14.2-18.0) Hematocrit 42.0 % (42.0-52.0) Mean Corpuscular Volume 88 FL (80-99) Mean Corpuscular Hemoglobin 30.4 PG (27.0-31.0) Mean Corpuscular Hemoglobin Concent 34.6 G/DL (32.0-36.0) Red Cell Distribution Width 12.3 % (11.6-14.8) Platelet Count 365 K/UL (150-450) Mean Platelet Volume 6.5 FL (6.5-10.1) Neutrophils (%) (Auto) 77.3 % (45.0-75.0) H Lymphocytes (%) (Auto) 13.5 % (20.0-45.0) L Monocytes (%) (Auto) 8.8 % (1.0-10.0) Eosinophils (%) (Auto) 0.1 % (0.0-3.0) Basophils (%) (Auto) 0.4 % (0.0-2.0) Sodium Level 133 MMOL/L (136-145) L Potassium Level 4.2 MMOL/L (3.5-5.1) Chloride Level 99 MMOL/L (98-107) Carbon Dioxide Level 24 MMOL/L (21-32) Anion Gap 10 mmol/L (5-15) Blood Urea Nitrogen 27 mg/dL (7-18) H Creatinine 0.9 MG/DL (0.55-1.30) Estimat Glomerular Filtration Rate > 60 mL/min (>60) Glucose Level 332 MG/DL (74-106) #H Calcium Level 9.2 MG/DL (8.5-10.1) Total Bilirubin 0.5 MG/DL (0.2-1.0) Direct Bilirubin 0.1 MG/DL (0.0-0.3) Aspartate Amino Transf (AST/SGOT) 28 U/L (15-37) Alanine Aminotransferase (ALT/SGPT) 41 U/L (12-78) Alkaline Phosphatase 144 U/L (46-116) H Total Protein 6.6 G/DL (6.4-8.2) Albumin 2.3 G/DL (3.4-5.0) L Globulin 4.3 g/dL Albumin/Globulin Ratio 0.5 (1.0-2.7) L Current Medications Medications (Trade) Dose Ordered Sig/Swetha Route PRN Reason Start Time Stop Time Status Last Admin Dose Admin Acetaminophen (Tylenol) 500 mg Q4H PRN ORAL Mild Pain (Pain Scale 1-3) 06/22/20 00:00 07/22/20 00:00 Dexamethasone Sodium Phosphate (Decadron 4mg/ml vial) 6 mg DAILY IVP 06/22/20 09:00 06/30/20 09:01 06/24/20 09:27 Enoxaparin Sodium (Lovenox) 40 mg DAILY SUBQ 06/22/20 09:00 09/20/20 08:59 06/24/20 09:27 Guaifenesin (Robitussin) 100 mg Q4H PRN ORAL For Cough 06/22/20 11:45 09/20/20 11:44 06/23/20 21:37 Remdesivir 100 mg/ Sodium Chloride 250 ml @ 250 mls/hr Q24H IV 06/23/20 18:00 06/26/20 18:59 06/23/20 18:18 Stevenson Buckley MD Jun 24, 2020 11:58
[2020-06-24 12:30] VITALS: BP 125/79
[2020-06-24 16:03] VITALS: BP 117/73
[2020-06-24] MEDS: NovoLOG Insulin Flexpen SUBQ SCH ×3 (18:17→21:25)
[2020-06-24] MEDS: Maintenance Dose:Remdesivir 100mg/NS 230ml x 4 Doses IV SCH ×2 (18:21)
[2020-06-24 20:00] VITALS: BP 136/85
[2020-06-24] MEDS ORDERED: Levemir Flexpen SUBQ SCH (21:00)
--- NOTE | 2020-06-24 21:04 | General Progress Note ---
Subjective ROS Limited/Unobtainable: Yes Allergies: Coded Allergies: No Known Allergies (Unverified , 05/12/12) Objective Last 24 Hour Vital Signs Date Time Temp Pulse Resp B/P (MAP) Pulse Ox O2 Delivery O2 Flow Rate FiO2 06/24/20 20:46 Venturi Mask 15.0 06/24/20 16:03 97.5 75 18 117/73 (88) 95 06/24/20 12:30 97.9 79 18 125/79 (94) 96 06/24/20 09:00 Venturi Mask 15.0 06/24/20 08:00 97.3 70 20 120/89 (99) 94 06/24/20 04:00 97.5 74 20 124/78 (93) 92 06/24/20 00:00 97.1 72 21 127/72 (90) 92 Intake and Output 06/23/20 06/24/20 18:59 06:59 Intake Total 1650 ml Balance 1650 ml Intake Oral 850 ml Other 800 ml # Voids 3 # Bowel Movements 1 Laboratory Tests 06/24/20 04:35: White Blood Count 10.2, Red Blood Count 4.79, Hemoglobin 14.6, Hematocrit 42.0, Mean Corpuscular Volume 88, Mean Corpuscular Hemoglobin 30.4, Mean Corpuscular Hemoglobin Concent 34.6, Red Cell Distribution Width 12.3, Platelet Count 365, M shantanu Platelet Volume 6.5, Neutrophils (%) (Auto) 77.3H, Lymphocytes (%) (Auto) 13.5L, Monocytes (%) (Auto) 8.8, Eosinophils (%) (Auto) 0.1, Basophils (%) (Auto) 0.4, Sodium Level 133L, Potassium Level 4.2, Chloride Level 99, Carbon Dioxide Level 24, Anion Gap 10, Blood Urea Nitrogen 27H, Creatinine 0.9, Estimat Glomerular Filtration Rate > 60, Glucose Level 332#H, Hemoglobin A1c 10.5H, Calcium Level 9.2, Total Bilirubin 0.5, Direct Bilirubin 0.1, Aspartate Amino Transf (AST/SGOT) 28, Alanine Aminotransferase (ALT/SGPT) 41, Alkaline Phosphatase 144H, Total Protein 6.6, Albumin 2.3L, Globulin 4.3, Albumin/Globulin Ratio 0.5L 06/24/20 16:42: POC Whole Blood Glucose [Pending] Height (Feet): 5 Height (Inches): 6.00 Weight (Pounds): 183 Assessment/Plan Problem List: (1) Hypoxia ICD Codes: R09.02 - Hypoxemia; J12.89 - Other viral pneumonia SNOMED: 302555886 (2) Pneumonia due to COVID-19 virus ICD Codes: U07.1 - COVID-19; J12.89 - Other viral pneumonia SNOMED: 357912413756785755 (3) Hypertension ICD Codes: I10 - Essential (primary) hypertension SNOMED: 92813890 Qualifiers: Qualified Codes: I10 - Essential (primary) hypertension (4) Upper respiratory infection ICD Codes: J06.9 - Acute upper respiratory infection, unspecified SNOMED: 62961642 Status: progressing Assessment/Plan: afebrile covid positive pna NO CHANGE continue prn oxygen htn vitals stable Aidan Bowman MD Jun 24, 2020 21:04
[2020-06-25 04:00] VITALS: BP 115/76
[2020-06-25] MEDS: NovoLOG Insulin Flexpen SUBQ SCH ×7 (05:15→22:12)
[2020-06-25 06:48] LABS: BASOPHILS % (AUTO) 0.3 % (0.0-2.0); EOSINOPHILS % (AUTO) 0.1 % (0.0-3.0); HEMATOCRIT 38.5 % (42.0-52.0); LYMPHOCYTES % (AUTO) 18.5 % (20.0-45.0); MEAN CORPUSCULAR VOLUME 83 FL (80-99); MONOCYTES % (AUTO) 10.6 % (1.0-10.0); NEUTROPHILS % (AUTO) 70.5 % (45.0-75.0); PLATELET COUNT 397 K/UL (150-450); RED BLOOD COUNT 4.63 M/UL (4.70-6.10); RED CELL DISTRIBUTION WIDTH 13.2 % (11.6-14.8); WHITE BLOOD COUNT 9.4 K/UL (4.8-10.8)
[2020-06-25 07:20] LABS: ALANINE AMINOTRANSFERASE 39 U/L (12-78); ALBUMIN 2.1 G/DL (3.4-5.0); ALBUMIN/GLOBULIN RATIO 0.5 (1.0-2.7); ALKALINE PHOSPHATASE 138 U/L (46-116); ANION GAP 9 mmol/L (5-15); ASPARTATE AMINO TRANSFERASE 22 U/L (15-37); BILIRUBIN,DIRECT 0.1 MG/DL (0.0-0.3); BILIRUBIN,TOTAL 0.4 MG/DL (0.2-1.0); CALCIUM 8.5 MG/DL (8.5-10.1); CARBON DIOXIDE 24 MMOL/L (21-32); CHLORIDE 99 MMOL/L (98-107); CREATININE 0.8 MG/DL (0.55-1.30); POTASSIUM 4.2 MMOL/L (3.5-5.1); SODIUM 132 MMOL/L (136-145)
[2020-06-25 07:32] LABS: BLOOD UREA NITROGEN 28 mg/dL (7-18)
[2020-06-25 08:00] VITALS: BP 109/66
--- NOTE | 2020-06-25 08:15 | Consultation ---
DATE OF CONSULTATION: 06/25/2020 ENDOCRINOLOGY CONSULTATION CONSULTING PHYSICIAN: Petr Aguirre MD REFERRING PHYSICIAN: Aidan Bowman MD REASON FOR CONSULTATION: Diabetes management. HISTORY OF PRESENT ILLNESS: Patient is a 54-year-old male without any significant history presented to the hospital with COVID pneumonia. Glucose was elevated. The patient on dexamethasone and Endocrinology was consulted. PAST MEDICAL HISTORY: Denies. PAST SURGICAL HISTORY: Denies. ALLERGIES TO MEDICATIONS: None. MEDICATIONS: As an outpatient, none. SOCIAL HISTORY: . No smoking, alcohol, or drug use. REVIEW OF SYSTEMS: As per HPI. PHYSICAL EXAMINATION: VITAL SIGNS: Blood pressure is 115/76, heart rate of 71, respiratory of 18, temperature 97.7. Rest of the exam was deferred to COVID pneumonia. LABORATORY DATA: WBC 9.4, hemoglobin 14, hematocrit 38, platelets of 397. Hemoglobin A1c 10.5. Sodium 133, potassium 4.2, chloride 99, bicarb 24, BUN 27, creatinine 0.9, glucose of 332. DIAGNOSES: 1. COVID pneumonia. 2. Diabetes, out of control. PLAN: 1. Patient needs to be treated with insulin. Start the patient on Levemir 15 units b.i.d. 2. Add NovoLog 10 units before each meal. 3. NovoLog sliding scale before each meal. 4. Hypoglycemia protocol is in order. Further adjustment according to blood glucose values. Thank you, Dr. Bowman, for the courtesy of this consultation. Petr Aguirre M.D. DR: ANTONIO/YONG JOB#: [id number] CC:
[2020-06-25] MEDS: Levemir Flexpen SUBQ SCH ×2 (08:25→18:02)
[2020-06-25] MEDS: Enoxaparin 40mg Inj SUBQ SCH (08:26)
--- NOTE | 2020-06-25 08:44 | Pulmonology Progress Note ---
Subjective ROS Limited/Unobtainable: Yes Interval Events: now on Venturi mask 55% FiO2 15L saturating at 92-94% Constitutional: Reports: no symptoms HEENT: Repors: no symptoms Respiratory: Reports: dry cough - improving Cardiovascular: Reports: no symptoms Gastrointestinal/Abdominal: Reports: no symptoms Allergies: Coded Allergies: No Known Allergies (Unverified , 05/12/12) Objective Last 24 Hour Vital Signs Date Time Temp Pulse Resp B/P (MAP) Pulse Ox O2 Delivery O2 Flow Rate FiO2 06/25/20 04:00 97.7 71 18 115/76 (89) 92 06/24/20 20:46 Venturi Mask 15.0 06/24/20 20:00 96.4 70 16 136/85 (102) 93 06/24/20 16:03 97.5 75 18 117/73 (88) 95 06/24/20 12:30 97.9 79 18 125/79 (94) 96 06/24/20 09:00 Venturi Mask 15.0 Intake and Output 06/24/20 06/25/20 19:00 07:00 Intake Total 1520 ml 400 ml Balance 1520 ml 400 ml Intake Oral 720 ml 400 ml Other 800 ml # Voids 3 3 # Bowel Movements 1 Objective 06/25/2020 saturating well on Venturi mask 15L; pt states he can be off NRB mask for 15-20 minutes before feeling short of breath again 06/24/2020 saturating well on NRB 12L; s/p failed attempt of 4 lpm NC, desaturated down to 89-90%, per RN; cont attempt weaning down oxygen while keeping SaO2 >92% 06/23/2020 saturating well on NRB 12L; s/p failed attempt of 4 lpm NC, desaturated down to 89-90%, per RN; cont attempt weaning down oxygen while keeping SaO2 >92% 06/22/2020 saturating well on NRB 15 L General Appearance: WD/WN, no acute distress HEENT: normocephalic, atraumatic Respiratory: chest wall non-tender, lungs clear Cardiovascular: normal rate, regular rhythm, no gallop/murmur Abdomen: soft, non tender Laboratory Tests 06/24/20 16:42: POC Whole Blood Glucose [Pending] 06/24/20 21:22: POC Whole Blood Glucose [Pending] 06/25/20 05:12: POC Whole Blood Glucose [Pending] 06/25/20 06:00: White Blood Count 9.4, Red Blood Count 4.63L, Hemoglobin 14.0L, Hematocrit 38.5L , Mean Corpuscular Volume 83, Mean Corpuscular Hemoglobin 30.3, Mean Corpuscular Hemoglobin Concent 36.4H, Red Cell Distribution Width 13.2, Platelet Count 397, Mean Platelet Volume 6.5, Neutrophils (%) (Auto) 70.5, Lymphocytes (%) (Auto) 18.5L, Monocytes (%) (Auto) 10.6H, Eosinophils (%) (Auto) 0.1, Basophils (%) (Auto) 0.3, Sodium Level 132L, Potassium Level 4.2, Chloride Level 99, Carbon Dioxide Level 24, Anion Gap 9, Blood Urea Nitrogen 28H, Creatinine 0.8, Estimat Glomerular Filtration Rate > 60, Glucose Level 345H, Calcium Level 8.5, Total B ilirubin 0.4, Direct Bilirubin 0.1, Aspartate Amino Transf (AST/SGOT) 22, Alanine Aminotransferase (ALT/SGPT) 39, Alkaline Phosphatase 138H, Total Protein 6.3L, Albumin 2.1L, Globulin 4.2, Albumin/Globulin Ratio 0.5L Current Medications Medications (Trade) Dose Ordered Sig/Swetha Route PRN Reason Start Time Stop Time Status Last Admin Dose Admin Acetaminophen (Tylenol) 500 mg Q4H PRN ORAL Mild Pain (Pain Scale 1-3) 06/22/20 00:00 07/22/20 00:00 Dexamethasone Sodium Phosphate (Decadron 4mg/ml vial) 6 mg DAILY IVP 06/22/20 09:00 06/30/20 09:01 06/25/20 08:26 Dextrose (Dextrose 50%) 25 ml Q30M PRN IV Hypoglycemia 06/24/20 13:45 09/22/20 13:44 Dextrose (Dextrose 50%) 50 ml Q30M PRN IV Hypoglycemia 06/24/20 13:45 09/22/20 13:44 Enoxaparin Sodium (Lovenox) 40 mg DAILY SUBQ 06/22/20 09:00 09/20/20 08:59 06/25/20 08:26 Guaifenesin (Robitussin) 100 mg Q4H PRN ORAL For Cough 06/22/20 11:45 09/20/20 11:44 06/23/20 21:37 Insulin Aspart (NovoLOG) BEFORE MEALS AND HS SUBQ 06/24/20 16:30 09/22/20 16:29 06/25/20 05:16 Insulin Aspart (NovoLOG) 10 units NOVOTIAC SUBQ 06/25/20 11:50 09/22/20 16:49 Insulin Detemir (Levemir) 15 units BID SUBQ 06/25/20 09:00 09/22/20 20:59 06/25/20 08:25 Remdesivir 100 mg/ Sodium Chloride 250 ml @ 250 mls/hr Q24H IV 06/23/20 18:00 06/26/20 18:59 06/24/20 18:21 Assessment/Plan Assessment/Plan 1. COVID-19 pneumonia. - CXR 06/21/2020 Patchy bilateral peripheral airspace opacities, right greater than left. - s/p NRB 12L; s/p failed attempt of 4 lpm NC, desaturated down to 89-90%, per RN; - now on 15L oxygen via Venturi mask; saturating at 92-94% - on Decadron - s/p broad-spectrum Abx - remdesivir per ID specialist - cont oxygen support 2. Elevated inflammatory markers. 3. Hypoxemia. 4. Hyperglycemia. DVT PPx -Lovenox We will follow. The care of this patient was discussed with my supervising physician Time spent for this encounter was approximately 31 minutes The patient was seen and examined at bedside and all new and available data was reviewed in the patients chart. I agree with the above findings, impression, and plan. (Patient was seen earlier today. Signature timestamp does not reflect patient encounter time) Colt Flores MD Jun 25, 2020 08:43 Slava Maravilla MD Jun 25, 2020 18:18
[2020-06-25 12:00] VITALS: BP 124/64
--- NOTE | 2020-06-25 13:06 | Infectious Diseases Prog Note ---
Assessment/Plan Assessment/Plan IMPRESSION: 1. COVID-19 disease, seems severe. The patient is hypoxemic. 2. Hyperglycemia, likely underlying diabetes mellitus. 3. Hypertension. 4. Hyponatremia. 5. Lymphopenia. RECOMMENDATIONS: Continue dexamethasone. Continue Remdesivir. Subjective ROS Limited/Unobtainable: No Constitutional: Reports: no symptoms, other - feels better Respiratory: Reports: shortness of breath Gastrointestinal/Abdominal: Reports: no symptoms Genitourinary: Reports: no symptoms Allergies: Coded Allergies: No Known Allergies (Unverified , 05/12/12) Objective Last 24 Hour Vital Signs Date Time Temp Pulse Resp B/P (MAP) Pulse Ox O2 Delivery O2 Flow Rate FiO2 06/25/20 12:00 97.3 74 18 124/64 (84) 94 06/25/20 09:00 Venturi Mask 15.0 06/25/20 08:00 97.9 75 18 109/66 (80) 92 06/25/20 04:00 97.7 71 18 115/76 (89) 92 06/24/20 20:46 Venturi Mask 15.0 06/24/20 20:00 96.4 70 16 136/85 (102) 93 06/24/20 16:03 97.5 75 18 117/73 (88) 95 Height (Feet): 5 Height (Inches): 6.00 Weight (Pounds): 183 HEENT: mucous membranes moist Respiratory/Chest: lungs clear Cardiovascular: normal rate Abdomen: soft, non tender Extremities: no edema Neurologic/Psychiatric: alert, oriented x 3, responsive Laboratory Tests Test 06/24/20 16:42 06/24/20 21:22 06/25/20 05:12 06/25/20 06:00 POC Whole Blood Glucose Pending Pending Pending White Blood Count 9.4 K/UL (4.8-10.8) Red Blood Count 4.63 M/UL (4.70-6.10) L Hemoglobin 14.0 G/DL (14.2-18.0) L Hematocrit 38.5 % (42.0-52.0) L Mean Corpuscular Volume 83 FL (80-99) Mean Corpuscular Hemoglobin 30.3 PG (27.0-31.0) Mean Corpuscular Hemoglobin Concent 36.4 G/DL (32.0-36.0) H Red Cell Distribution Width 13.2 % (11.6-14.8) Platelet Count 397 K/UL (150-450) Mean Platelet Volume 6.5 FL (6.5-10.1) Neutrophils (%) (Auto) 70.5 % (45.0-75.0) Lymphocytes (%) (Auto) 18.5 % (20.0-45.0) L Monocytes (%) (Auto) 10.6 % (1.0-10.0) H Eosinophils (%) (Auto) 0.1 % (0.0-3.0) Basophils (%) (Auto) 0.3 % (0.0-2.0) Sodium Level 132 MMOL/L (136-145) L Potassium Level 4.2 MMOL/L (3.5-5.1) Chloride Level 99 MMOL/L (98-107) Carbon Dioxide Level 24 MMOL/L (21-32) Anion Gap 9 mmol/L (5-15) Blood Urea Nitrogen 28 mg/dL (7-18) H Creatinine 0.8 MG/DL (0.55-1.30) Estimat Glomerular Filtration Rate > 60 mL/min (>60) Glucose Level 345 MG/DL (74-106) H Calcium Level 8.5 MG/DL (8.5-10.1) Total Bilirubin 0.4 MG/DL (0.2-1.0) Direct Bilirubin 0.1 MG/DL (0.0-0.3) Aspartate Amino Transf (AST/SGOT) 22 U/L (15-37) Alanine Aminotransferase (ALT/SGPT) 39 U/L (12-78) Alkaline Phosphatase 138 U/L (46-116) H Total Protein 6.3 G/DL (6.4-8.2) L Albumin 2.1 G/DL (3.4-5.0) L Globulin 4.2 g/dL Albumin/Globulin Ratio 0.5 (1.0-2.7) L Current Medications Medications (Trade) Dose Ordered Sig/Swetha Route PRN Reason Start Time Stop Time Status Last Admin Dose Admin Acetaminophen (Tylenol) 500 mg Q4H PRN ORAL Mild Pain (Pain Scale 1-3) 06/22/20 00:00 07/22/20 00:00 Dexamethasone Sodium Phosphate (Decadron 4mg/ml vial) 6 mg DAILY IVP 06/22/20 09:00 06/30/20 09:01 06/25/20 08:26 Dextrose (Dextrose 50%) 25 ml Q30M PRN IV Hypoglycemia 06/24/20 13:45 09/22/20 13:44 Dextrose (Dextrose 50%) 50 ml Q30M PRN IV Hypoglycemia 06/24/20 13:45 09/22/20 13:44 Enoxaparin Sodium (Lovenox) 40 mg DAILY SUBQ 06/22/20 09:00 09/20/20 08:59 06/25/20 08:26 Guaifenesin (Robitussin) 100 mg Q4H PRN ORAL For Cough 06/22/20 11:45 09/20/20 11:44 06/23/20 21:37 Insulin Aspart (NovoLOG) BEFORE MEALS AND HS SUBQ 06/24/20 16:30 09/22/20 16:29 06/25/20 12:33 Insulin Aspart (NovoLOG) 10 units NOVOTIAC SUBQ 06/25/20 11:50 09/22/20 16:49 06/25/20 12:37 Insulin Detemir (Levemir) 15 units BID SUBQ 06/25/20 09:00 09/22/20 20:59 06/25/20 08:25 Remdesivir 100 mg/ Sodium Chloride 250 ml @ 250 mls/hr Q24H IV 06/23/20 18:00 06/26/20 18:59 06/24/20 18:21 Stevenson Buckley MD Jun 25, 2020 13:06
--- NOTE | 2020-06-25 14:54 | Diagnostic Imaging Report ---
Indication: Bilateral leg pain Technique: Grayscale and duplex images of the bilateral lower extremity veins Comparison: Findings: Bilaterally, grayscale and duplex images demonstrate no evidence of intraluminal thrombus. Normal phasic Doppler waveforms, demonstrating normal augmentation response and no evidence of valvular insufficiency. Greater saphenous vein(s) and tibial veins are patent. Normal compressibility. Impression: Negative for evidence of lower extremity deep venous thrombosis bilaterally
[2020-06-25 16:00] VITALS: BP 145/75
[2020-06-25] MEDS: Maintenance Dose:Remdesivir 100mg/NS 230ml x 4 Doses IV SCH ×2 (18:12)
[2020-06-25 20:00] VITALS: BP 135/67
--- NOTE | 2020-06-25 21:14 | General Progress Note ---
Subjective ROS Limited/Unobtainable: Yes Allergies: Coded Allergies: No Known Allergies (Unverified , 05/12/12) Objective Last 24 Hour Vital Signs Date Time Temp Pulse Resp B/P (MAP) Pulse Ox O2 Delivery O2 Flow Rate FiO2 06/25/20 16:00 96.0 73 20 145/75 (98) 100 06/25/20 12:00 97.3 74 18 124/64 (84) 94 06/25/20 09:00 Venturi Mask 15.0 06/25/20 08:00 97.9 75 18 109/66 (80) 92 06/25/20 04:00 97.7 71 18 115/76 (89) 92 Intake and Output 06/24/20 06/25/20 19:00 07:00 Intake Total 1520 ml 400 ml Balance 1520 ml 400 ml Intake Oral 720 ml 400 ml Other 800 ml # Voids 3 3 # Bowel Movements 1 Laboratory Tests 06/24/20 21:22: POC Whole Blood Glucose [Pending] 06/25/20 05:12: POC Whole Blood Glucose [Pending] 06/25/20 06:00: White Blood Count 9.4, Red Blood Count 4.63L, Hemoglobin 14.0L, Hematocrit 38.5L , Mean Corpuscular Volume 83, Mean Corpuscular Hemoglobin 30.3, Mean Corpuscular Hemoglobin Concent 36.4H, Red Cell Distribution Width 13.2, Platelet Count 397, Mean Platelet Volume 6.5, Neutrophils (%) (Auto) 70.5, Lymphocytes (%) (Auto) 18.5L, Monocytes (%) (Auto) 10.6H, Eosinophils (%) (Auto) 0.1, Basophils (%) (Auto) 0.3, Sodium Level 132L, Potassium Level 4.2, Chloride Level 99, Carbon Dioxide Level 24, Anion Gap 9, Blood Urea Nitrogen 28H, Creatinine 0.8, Estimat Glomerular Filtration Rate > 60, Glucose Level 345H, Calcium Level 8.5, Total Bilirubin 0.4, Direct Bilirubin 0.1, Aspartate Amino Transf (AST/SGOT) 22, Alanine Aminotransferase (ALT/SGPT) 39, Alkaline Phosphatase 138H, Total Protein 6.3L, Albumin 2.1L, Globulin 4.2, Albumin/Globulin Ratio 0.5L Height (Feet): 5 Height (Inches): 6.00 Weight (Pounds): 183 Assessment/Plan Problem List: (1) Hypoxia ICD Codes: R09.02 - Hypoxemia; J12.89 - Other viral pneumonia SNOMED: 726029944 (2) Pneumonia due to COVID-19 virus ICD Codes: U07.1 - COVID-19; J12.89 - Other viral pneumonia SNOMED: 164325006571616704 (3) Hypertension ICD Codes: I10 - Essential (primary) hypertension SNOMED: 59687546 Qualifiers: Qualified Codes: I10 - Essential (primary) hypertension (4) Upper respiratory infection ICD Codes: J06.9 - Acute upper respiratory infection, unspecified SNOMED: 15446452 Status: progressing Assessment/Plan: covid + resp insuff afebrile htn s/p head trauma reviewed chart and labs Aidan Bowman MD Jun 25, 2020 21:14
[2020-06-26 04:00] VITALS: BP 123/80
[2020-06-26] MEDS: NovoLOG Insulin Flexpen SUBQ SCH ×7 (06:13→21:22)
--- NOTE | 2020-06-26 06:40 | General Progress Note ---
Subjective ROS Limited/Unobtainable: Yes Allergies: Coded Allergies: No Known Allergies (Unverified , 05/12/12) Subjective events noted interval notes reviewed glucose values are elevated Item Value Date Time Bedside Blood Glucose 282 mg/dl H 06/26/20 0614 Bedside Blood Glucose 320 mg/dl H 06/25/20 2212 Bedside Blood Glucose 482 mg/dl H 06/25/20 1802 Bedside Blood Glucose 379 mg/dl H 06/25/20 1237 Bedside Blood Glucose 384 mg/dl H 06/25/20 0825 Objective Last 24 Hour Vital Signs Date Time Temp Pulse Resp B/P (MAP) Pulse Ox O2 Delivery O2 Flow Rate FiO2 06/25/20 21:00 Venturi Mask 15.0 06/25/20 20:00 97.5 73 20 135/67 (89) 95 06/25/20 16:00 96.0 73 20 145/75 (98) 100 06/25/20 12:00 97.3 74 18 124/64 (84) 94 06/25/20 09:00 Venturi Mask 15.0 06/25/20 08:00 97.9 75 18 109/66 (80) 92 Intake and Output 06/25/20 06/26/20 19:00 07:00 # Voids 3 Height (Feet): 5 Height (Inches): 6.00 Weight (Pounds): 183 Objective Current Medications Medications (Trade) Dose Ordered Sig/Swetha Route PRN Reason Start Time Stop Time Status Last Admin Dose Admin Acetaminophen (Tylenol) 500 mg Q4H PRN ORAL Mild Pain (Pain Scale 1-3) 06/22/20 00:00 07/22/20 00:00 Dexamethasone Sodium Phosphate (Decadron 4mg/ml vial) 6 mg DAILY IVP 06/22/20 09:00 06/30/20 09:01 06/25/20 08:26 Dextrose (Dextrose 50%) 25 ml Q30M PRN IV Hypoglycemia 06/24/20 13:45 09/22/20 13:44 Dextrose (Dextrose 50%) 50 ml Q30M PRN IV Hypoglycemia 06/24/20 13:45 09/22/20 13:44 Enoxaparin Sodium (Lovenox) 40 mg DAILY SUBQ 06/22/20 09:00 09/20/20 08:59 06/25/20 08:26 Guaifenesin (Robitussin) 100 mg Q4H PRN ORAL For Cough 06/22/20 11:45 09/20/20 11:44 06/23/20 21:37 Insulin Aspart (NovoLOG) BEFORE MEALS AND HS SUBQ 06/24/20 16:30 09/22/20 16:29 06/26/20 06:13 Insulin Aspart (NovoLOG) 10 units NOVOTIAC SUBQ 06/25/20 11:50 09/22/20 16:49 06/26/20 06:14 Insulin Detemir (Levemir) 15 units BID SUBQ 06/25/20 09:00 09/22/20 20:59 06/25/20 18:02 Remdesivir 100 mg/ Sodium Chloride 250 ml @ 250 mls/hr Q24H IV 06/23/20 18:00 06/26/20 18:59 06/25/20 18:12 Assessment/Plan Problem List: (1) Diabetes mellitus out of control ICD Codes: E11.65 - Type 2 diabetes mellitus with hyperglycemia SNOMED: 53998386, 002054646 (2) Pneumonia due to COVID-19 virus ICD Codes: U07.1 - COVID-19; J12.89 - Other viral pneumonia SNOMED: 410303853529214182 (3) Hypertension ICD Codes: I10 - Essential (primary) hypertension SNOMED: 80173942 Qualifiers: Qualified Codes: I10 - Essential (primary) hypertension Status: progressing Assessment/Plan: increase Levemir to 20 units bid increase Novolog to 20 units ac tid continue sliding scale ac hs Petr Aguirre MD Jun 26, 2020 06:40
--- NOTE | 2020-06-26 06:43 | Consultation ---
History of Present Illness General Chief Complaint: Dyspnea/Respdistress Present Illness Allergies: Coded Allergies: No Known Allergies (Unverified , 05/12/12) Medication History No Active Prescriptions or Reported Meds Patient History Healthcare decision maker Resuscitation status Advanced Directive on File Physical Exam Last 24 Hour Vital Signs Date Time Temp Pulse Resp B/P (MAP) Pulse Ox O2 Delivery O2 Flow Rate FiO2 06/25/20 21:00 Venturi Mask 15.0 06/25/20 20:00 97.5 73 20 135/67 (89) 95 06/25/20 16:00 96.0 73 20 145/75 (98) 100 06/25/20 12:00 97.3 74 18 124/64 (84) 94 06/25/20 09:00 Venturi Mask 15.0 06/25/20 08:00 97.9 75 18 109/66 (80) 92 Intake and Output 06/25/20 06/26/20 19:00 07:00 # Voids 3 Height (Feet): 5 Height (Inches): 6.00 Weight (Pounds): 183 Medications Current Medications Medications (Trade) Dose Ordered Sig/Swetha Route PRN Reason Start Time Stop Time Status Last Admin Dose Admin Acetaminophen (Tylenol) 500 mg Q4H PRN ORAL Mild Pain (Pain Scale 1-3) 06/22/20 00:00 07/22/20 00:00 Dexamethasone Sodium Phosphate (Decadron 4mg/ml vial) 6 mg DAILY IVP 06/22/20 09:00 06/30/20 09:01 06/25/20 08:26 Dextrose (Dextrose 50%) 25 ml Q30M PRN IV Hypoglycemia 06/24/20 13:45 09/22/20 13:44 Dextrose (Dextrose 50%) 50 ml Q30M PRN IV Hypoglycemia 06/24/20 13:45 09/22/20 13:44 Enoxaparin Sodium (Lovenox) 40 mg DAILY SUBQ 06/22/20 09:00 09/20/20 08:59 06/25/20 08:26 Guaifenesin (Robitussin) 100 mg Q4H PRN ORAL For Cough 06/22/20 11:45 09/20/20 11:44 06/23/20 21:37 Insulin Aspart (NovoLOG) BEFORE MEALS AND HS SUBQ 06/24/20 16:30 09/22/20 16:29 06/26/20 06:13 Insulin Aspart (NovoLOG) 20 units TIWM SUBQ 06/26/20 07:00 09/22/20 16:49 UNV Insulin Detemir (Levemir) 20 units BID SUBQ 06/26/20 09:00 09/22/20 20:59 UNV Remdesivir 100 mg/ Sodium Chloride 250 ml @ 250 mls/hr Q24H IV 06/23/20 18:00 06/26/20 18:59 06/25/20 18:12 Assessment/Plan Assessment/Plan: Hematology Consultation REQ MD: Aidan Lyon RFC: Elevated ddimer HPI 54y old male presents to the hospital for increasing dyspnea. He tested positive for Covid last week. He has been trying to get by at home but has been unable to sleep. He gets extremely winded when he barely moves about the house. He has had fevers that have been untreatable with just ibuprofen. The patient's had vomiting and also diarrhea. He is able to keep down some liquids. The patient feels extremely anxious. Patient does not smoke. He has no diabetes. He does not know if he has hypertension. No sore throat, chest pain, palpitations, dysuria, abdominal pain, joint pain, rashes, dizziness, headache. Allergies: No Known Allergies (Unverified , 05/12/12) COVID-19 Screening Contact w/high risk pt: Yes Experienced COVID-19 symptoms?: Yes COVID-19 Testing performed DIGITAL MEDIA COORDINATOR: Yes COVID-19 Screening: Positive COVID-19 COVID-19 Testing Source: nasal Patient History Past Medical History: see triage record Social History: Denies: smoking Social History Narrative Cleans properties lives with family number family members have tested negative Nursing Documentation-PMH Past Medical History: No Stated History Review of Systems All Other Systems: negative except mentioned in HPI Physical Exam Sp02 EP Interpretation: reviewed, normal General: well appearing, GCS 15, mild distress - With dyspnea and anxiety Heent: normal pharynx, moist mucus membranes Respiratory: no wheezing - Slight expiratory phase increase, crackles Cardiovascular: regular rate, rhythm Gastrointestinal: normal inspection, normal bowel sounds, non tender, no mass, non-distended Genitourinary: no CVA tenderness Musculoskeletal: back normal, normal range of motion, gait/station normal Neurologic: alert, oriented x3, grossly normal Psychiatric: anxious Skin: no rash, warm/dry, other - Fully clothed Labs: reviewed Imaging: noted Assessment and recs # Elevated ddimer is due to covid19++++ -> duplex lower legs ordered to r/o dvt --> Pneumonia due to COVID-19 virus --> cxr with r>l infiltrates --> per pulm # COVID-19 pneumonia. --> CXR 06/21/2020 Patchy bilateral peripheral airspace opacities, right greater than left. --> s/p NRB 12L; s/p failed attempt of 4 lpm NC, desaturated down to 89-90%, per RN; --> on Decadron,Abx --> remdesivir per ID specialist --> cont oxygen support # Hypoxemia. # Hyperglycemia. # DVT PPx --> Lovenox Appreciate consultation and Rebel Damico RN, MD Jun 26, 2020 06:43
[2020-06-26 07:28] LABS: BASOPHILS % (AUTO) 0.4 % (0.0-2.0); EOSINOPHILS % (AUTO) 0.6 % (0.0-3.0); HEMATOCRIT 39.7 % (42.0-52.0); LYMPHOCYTES % (AUTO) 23.5 % (20.0-45.0); MEAN CORPUSCULAR VOLUME 87 FL (80-99); NEUTROPHILS % (AUTO) 64.5 % (45.0-75.0); PLATELET COUNT 390 K/UL (150-450); RED BLOOD COUNT 4.56 M/UL (4.70-6.10); RED CELL DISTRIBUTION WIDTH 12.1 % (11.6-14.8); WHITE BLOOD COUNT 9.5 K/UL (4.8-10.8)
[2020-06-26 07:55] LABS: ALANINE AMINOTRANSFERASE 37 U/L (12-78); ALBUMIN/GLOBULIN RATIO 0.5 (1.0-2.7); ALKALINE PHOSPHATASE 160 U/L (46-116); ANION GAP 10 mmol/L (5-15); ASPARTATE AMINO TRANSFERASE 20 U/L (15-37); BILIRUBIN,DIRECT < 0.1 MG/DL (0.0-0.3); BILIRUBIN,TOTAL 0.4 MG/DL (0.2-1.0); BLOOD UREA NITROGEN 25 mg/dL (7-18); CALCIUM 8.1 MG/DL (8.5-10.1); CARBON DIOXIDE 23 MMOL/L (21-32); CHLORIDE 101 MMOL/L (98-107); CREATININE 0.9 MG/DL (0.55-1.30); POTASSIUM 3.9 MMOL/L (3.5-5.1); SODIUM 134 MMOL/L (136-145)
[2020-06-26 08:00] VITALS: BP 120/76
[2020-06-26] MEDS: Levemir Flexpen SUBQ SCH ×2 (08:27→17:32)
[2020-06-26] MEDS: Enoxaparin 40mg Inj SUBQ SCH (08:28)
[2020-06-26 12:00] VITALS: BP 120/68
--- NOTE | 2020-06-26 12:30 | Infectious Diseases Prog Note ---
Assessment/Plan Assessment/Plan IMPRESSION: 1. COVID-19 disease, improving hypoxemia 2. Diabetes mellitus with hyperglycemia 3. Hypertension. 4. Hyponatremia. 5. Lymphopenia. RECOMMENDATIONS: Continue dexamethasone. Continue Remdesivir. If remains stable can be discharged soon Subjective ROS Limited/Unobtainable: Yes Constitutional: Reports: no symptoms, other - feels better Respiratory: Reports: shortness of breath, dry cough, other - both are better Allergies: Coded Allergies: No Known Allergies (Unverified , 05/12/12) Objective Last 24 Hour Vital Signs Date Time Temp Pulse Resp B/P (MAP) Pulse Ox O2 Delivery O2 Flow Rate FiO2 06/26/20 09:00 Room Air 06/26/20 08:00 98.6 90 20 120/76 (91) 95 06/26/20 04:00 97.5 64 20 123/80 (94) 95 06/25/20 21:00 Venturi Mask 15.0 06/25/20 20:00 97.5 73 20 135/67 (89) 95 06/25/20 16:00 96.0 73 20 145/75 (98) 100 Height (Feet): 5 Height (Inches): 6.00 Weight (Pounds): 183 General Appearance: no acute distress HEENT: mucous membranes moist Respiratory/Chest: lungs clear Cardiovascular: normal rate Abdomen: soft, non tender Extremities: no edema Neurologic/Psychiatric: alert, oriented x 3, responsive Laboratory Tests Test 06/26/20 04:00 White Blood Count 9.5 K/UL (4.8-10.8) Red Blood Count 4.56 M/UL (4.70-6.10) L Hemoglobin 14.0 G/DL (14.2-18.0) L Hematocrit 39.7 % (42.0-52.0) L Mean Corpuscular Volume 87 FL (80-99) Mean Corpuscular Hemoglobin 30.8 PG (27.0-31.0) Mean Corpuscular Hemoglobin Concent 35.3 G/DL (32.0-36.0) Red Cell Distribution Width 12.1 % (11.6-14.8) Platelet Count 390 K/UL (150-450) Mean Platelet Volume 6.5 FL (6.5-10.1) Neutrophils (%) (Auto) 64.5 % (45.0-75.0) Lymphocytes (%) (Auto) 23.5 % (20.0-45.0) Monocytes (%) (Auto) 11.0 % (1.0-10.0) H Eosinophils (%) (Auto) 0.6 % (0.0-3.0) Basophils (%) (Auto) 0.4 % (0.0-2.0) Sodium Level 134 MMOL/L (136-145) L Potassium Level 3.9 MMOL/L (3.5-5.1) Chloride Level 101 MMOL/L (98-107) Carbon Dioxide Level 23 MMOL/L (21-32) Anion Gap 10 mmol/L (5-15) Blood Urea Nitrogen 25 mg/dL (7-18) H Creatinine 0.9 MG/DL (0.55-1.30) Estimat Glomerular Filtration Rate > 60 mL/min (>60) Glucose Level 313 MG/DL (74-106) H Calcium Level 8.1 MG/DL (8.5-10.1) L Total Bilirubin 0.4 MG/DL (0.2-1.0) Direct Bilirubin < 0.1 MG/DL (0.0-0.3) Aspartate Amino Transf (AST/SGOT) 20 U/L (15-37) Alanine Aminotransferase (ALT/SGPT) 37 U/L (12-78) Alkaline Phosphatase 160 U/L (46-116) H Total Protein 5.8 G/DL (6.4-8.2) L Albumin 2.0 G/DL (3.4-5.0) L Globulin 3.8 g/dL Albumin/Globulin Ratio 0.5 (1.0-2.7) L Current Medications Medications (Trade) Dose Ordered Sig/Swetha Route PRN Reason Start Time Stop Time Status Last Admin Dose Admin Acetaminophen (Tylenol) 500 mg Q4H PRN ORAL Mild Pain (Pain Scale 1-3) 06/22/20 00:00 07/22/20 00:00 Dexamethasone Sodium Phosphate (Decadron 4mg/ml vial) 6 mg DAILY IVP 06/22/20 09:00 06/30/20 09:01 06/26/20 08:23 Dextrose (Dextrose 50%) 25 ml Q30M PRN IV Hypoglycemia 06/24/20 13:45 09/22/20 13:44 Dextrose (Dextrose 50%) 50 ml Q30M PRN IV Hypoglycemia 06/24/20 13:45 09/22/20 13:44 Enoxaparin Sodium (Lovenox) 40 mg DAILY SUBQ 06/22/20 09:00 09/20/20 08:59 06/26/20 08:28 Guaifenesin (Robitussin) 100 mg Q4H PRN ORAL For Cough 06/22/20 11:45 09/20/20 11:44 06/23/20 21:37 Insulin Aspart (NovoLOG) BEFORE MEALS AND HS SUBQ 06/24/20 16:30 09/22/20 16:29 06/26/20 11:55 Insulin Aspart (NovoLOG) 20 units TIWM SUBQ 06/26/20 12:00 09/22/20 11:59 06/26/20 11:57 Insulin Detemir (Levemir) 20 units BID SUBQ 06/26/20 09:00 09/22/20 20:59 06/26/20 08:27 Remdesivir 100 mg/ Sodium Chloride 250 ml @ 250 mls/hr Q24H IV 06/23/20 18:00 06/26/20 18:59 06/25/20 18:12 Stevenson Buckley MD Jun 26, 2020 12:30
--- NOTE | 2020-06-26 12:37 | Pulmonology Progress Note ---
Subjective ROS Limited/Unobtainable: Yes Interval Events: now on and off simple face mask oxygen support; He Constitutional: Reports: no symptoms HEENT: Repors: no symptoms Respiratory: Reports: dry cough - intermittent, mild; improving Cardiovascular: Reports: no symptoms Gastrointestinal/Abdominal: Reports: no symptoms Allergies: Coded Allergies: No Known Allergies (Unverified , 05/12/12) Objective Last 24 Hour Vital Signs Date Time Temp Pulse Resp B/P (MAP) Pulse Ox O2 Delivery O2 Flow Rate FiO2 06/26/20 09:00 Room Air 06/26/20 08:00 98.6 90 20 120/76 (91) 95 06/26/20 04:00 97.5 64 20 123/80 (94) 95 06/25/20 21:00 Venturi Mask 15.0 06/25/20 20:00 97.5 73 20 135/67 (89) 95 06/25/20 16:00 96.0 73 20 145/75 (98) 100 Intake and Output 06/25/20 06/26/20 19:00 07:00 # Voids 3 2 Objective 06/26/2020 saturating Venturi mask 15L; pt is off mask in bed; reports he needs oxygen "sometimes" 06/25/2020 saturating well on Venturi mask 15L; pt states he can be off venturi mask for 15-20 minutes before feeling short of breath again 06/24/2020 saturating well on NRB 12L; s/p failed attempt of 4 lpm NC, desaturated down to 89-90%, per RN; cont attempt weaning down oxygen while keeping SaO2 >92% 06/23/2020 saturating well on NRB 12L; s/p failed attempt of 4 lpm NC, desaturated down to 89-90%, per RN; cont attempt weaning down oxygen while keeping SaO2 >92% 06/22/2020 saturating well on NRB 15 L General Appearance: WD/WN, no acute distress HEENT: normocephalic, atraumatic Respiratory: chest wall non-tender, lungs clear Cardiovascular: normal rate, regular rhythm, no gallop/murmur Abdomen: soft, non tender Laboratory Tests 06/26/20 04:00: White Blood Count 9.5, Red Blood Count 4.56L, Hemoglobin 14.0L, Hematocrit 39.7L , Mean Corpuscular Volume 87, Mean Corpuscular Hemoglobin 30.8, Mean Corpuscular Hemoglobin Concent 35.3, Red Cell Distribution Width 12.1, Platelet Count 390, Mean Platelet Volume 6.5, Neutrophils (%) (Auto) 64.5, Lymphocytes (%) (Auto) 23.5, Monocytes (%) (Auto) 11.0H, Eosinophils (%) (Auto) 0.6, Basophils (%) (Auto) 0.4, Sodium Level 134L, Potassium Level 3.9, Chloride Level 101, Carbon Dioxide Level 23, Anion Gap 10, Blood Urea Nitrogen 25H, Creatinine 0.9, Estimat Glomerular Filtration Rate > 60, Glucose Level 313H, Calcium Level 8.1L, Total Bilirubin 0.4, Direct Bilirubin < 0.1, Aspartate Amino Transf (AST/SGOT) 20, Alanine Aminotransferase (ALT/SGPT) 37, Alkaline Phosphatase 160H, Total Protein 5.8L, Albumin 2.0L, Globulin 3.8, Albumin/Globulin Ratio 0.5L Current Medications Medications (Trade) Dose Ordered Sig/Swetha Route PRN Reason Start Time Stop Time Status Last Admin Dose Admin Acetaminophen (Tylenol) 500 mg Q4H PRN ORAL Mild Pain (Pain Scale 1-3) 06/22/20 00:00 07/22/20 00:00 Dexamethasone Sodium Phosphate (Decadron 4mg/ml vial) 6 mg DAILY IVP 06/22/20 09:00 06/30/20 09:01 06/26/20 08:23 Dextrose (Dextrose 50%) 25 ml Q30M PRN IV Hypoglycemia 06/24/20 13:45 09/22/20 13:44 Dextrose (Dextrose 50%) 50 ml Q30M PRN IV Hypoglycemia 06/24/20 13:45 09/22/20 13:44 Enoxaparin Sodium (Lovenox) 40 mg DAILY SUBQ 06/22/20 09:00 09/20/20 08:59 06/26/20 08:28 Guaifenesin (Robitussin) 100 mg Q4H PRN ORAL For Cough 06/22/20 11:45 09/20/20 11:44 06/23/20 21:37 Insulin Aspart (NovoLOG) BEFORE MEALS AND HS SUBQ 06/24/20 16:30 09/22/20 16:29 06/26/20 11:55 Insulin Aspart (NovoLOG) 20 units TIWM SUBQ 06/26/20 12:00 09/22/20 11:59 06/26/20 11:57 Insulin Detemir (Levemir) 20 units BID SUBQ 06/26/20 09:00 09/22/20 20:59 06/26/20 08:27 Remdesivir 100 mg/ Sodium Chloride 250 ml @ 250 mls/hr Q24H IV 06/23/20 18:00 06/26/20 18:59 06/25/20 18:12 Assessment/Plan Assessment/Plan 1. COVID-19 pneumonia. - CXR 06/21/2020 Patchy bilateral peripheral airspace opacities, right greater than left. - s/p NRB 12L; s/p failed attempt of 4 lpm NC, desaturated down to 89-90%, per RN; - currently on 15L oxygen via Venturi mask - Pt is saturating mid-90's on RA + venturi mask oxygen supplement; pt reports he still "needs oxygen at night"; pt refuses switching to NC stating he does much better with the Venturi mask - on Decadron - s/p broad-spectrum Abx - remdesivir per ID specialist - cont oxygen support; wean as tolerated while keeping SaO2 >92% 2. Elevated inflammatory markers. 3. Hypoxemia. 4. Hyperglycemia. DVT PPx -Lovenox We will follow. The care of this patient was discussed with my supervising physician Time spent for this encounter was approximately 31 minutes The patient was seen and examined at bedside and all new and available data was reviewed in the patients chart. I agree with the above findings, impression, and plan. (Patient was seen earlier today. Signature timestamp does not reflect patient encounter time) Colt Flores MD Jun 26, 2020 12:37 Slava Maravilla MD Jun 26, 2020 17:37
[2020-06-26 16:00] VITALS: BP 111/66
[2020-06-26] MEDS: Maintenance Dose:Remdesivir 100mg/NS 230ml x 4 Doses IV SCH ×2 (17:31)
[2020-06-26 20:00] VITALS: BP 121/78
--- NOTE | 2020-06-26 21:32 | General Progress Note ---
Subjective ROS Limited/Unobtainable: Yes Allergies: Coded Allergies: No Known Allergies (Unverified , 05/12/12) Objective Last 24 Hour Vital Signs Date Time Temp Pulse Resp B/P (MAP) Pulse Ox O2 Delivery O2 Flow Rate FiO2 06/26/20 16:00 98.2 93 20 111/66 (81) 97 06/26/20 12:00 98.3 70 20 120/68 (85) 100 06/26/20 09:00 Room Air 06/26/20 08:00 98.6 90 20 120/76 (91) 95 06/26/20 04:00 97.5 64 20 123/80 (94) 95 Intake and Output 06/25/20 06/26/20 19:00 07:00 # Voids 3 2 Laboratory Tests 06/26/20 04:00: White Blood Count 9.5, Red Blood Count 4.56L, Hemoglobin 14.0L, Hematocrit 39.7L , Mean Corpuscular Volume 87, Mean Corpuscular Hemoglobin 30.8, Mean Corpuscular Hemoglobin Concent 35.3, Red Cell Distribution Width 12.1, Platelet Count 390, Mean Platelet Volume 6.5, Neutrophils (%) (Auto) 64.5, Lymphocytes (%) (Auto) 23.5, Monocytes (%) (Auto) 11.0H, Eosinophils (%) (Auto) 0.6, Basophils (%) (Auto) 0.4, Sodium Level 134L, Potassium Level 3.9, Chloride Level 101, Carbon Dioxide Level 23, Anion Gap 10, Blood Urea Nitrogen 25H, Creatinine 0.9, Estimat Glomerular Filtration Rate > 60, Glucose Level 313H, Calcium Level 8.1L, Total Bilirubin 0.4, Direct Bilirubin < 0.1, Aspartate Amino Transf (AST/SGOT) 20, Alanine Aminotransferase (ALT/SGPT) 37, Alkaline Phosphatase 160H, Total Protein 5.8L, Albumin 2.0L, Globulin 3.8, Albumin/Globulin Ratio 0.5L Height (Feet): 5 Height (Inches): 6.00 Weight (Pounds): 183 Assessment/Plan Problem List: (1) Hypoxia ICD Codes: R09.02 - Hypoxemia; J12.89 - Other viral pneumonia SNOMED: 538750282 (2) Pneumonia due to COVID-19 virus ICD Codes: U07.1 - COVID-19; J12.89 - Other viral pneumonia SNOMED: 919601471887821212 (3) Hypertension ICD Codes: I10 - Essential (primary) hypertension SNOMED: 67669416 Qualifiers: Qualified Codes: I10 - Essential (primary) hypertension (4) Upper respiratory infection ICD Codes: J06.9 - Acute upper respiratory infection, unspecified SNOMED: 32496689 Status: progressing Assessment/Plan: covid + resp insuff htn s/p head trauma prn supportive treatment s/p hypoxia Aidan Bowman MD Jun 26, 2020 21:32
[2020-06-27] VITALS: BP 120/81
[2020-06-27 04:00] VITALS: BP 128/81
[2020-06-27 06:00] VITALS: BP 128/81
[2020-06-27] MEDS: NovoLOG Insulin Flexpen SUBQ SCH ×4 (06:30→12:26)
--- NOTE | 2020-06-27 06:40 | General Progress Note ---
Subjective ROS Limited/Unobtainable: Yes Allergies: Coded Allergies: No Known Allergies (Unverified , 05/12/12) Subjective events noted interval notes reviewed glucose values improved Item Value Date Time Bedside Blood Glucose 194 mg/dl H 06/26/20 2122 Bedside Blood Glucose 333 mg/dl H 06/26/20 1732 Bedside Blood Glucose 224 mg/dl H 06/26/20 1157 Bedside Blood Glucose 282 mg/dl H 06/26/20 0827 Glucose Level 313 MG/DL H 06/26/20 0400 Objective Last 24 Hour Vital Signs Date Time Temp Pulse Resp B/P (MAP) Pulse Ox O2 Delivery O2 Flow Rate FiO2 06/27/20 00:00 98.0 64 20 120/81 (94) 99 06/26/20 21:00 Room Air 06/26/20 20:00 98.2 67 18 121/78 (92) 94 06/26/20 16:00 98.2 93 20 111/66 (81) 97 06/26/20 12:00 98.3 70 20 120/68 (85) 100 06/26/20 09:00 Room Air 06/26/20 08:00 98.6 90 20 120/76 (91) 95 Intake and Output 06/26/20 06/27/20 19:00 07:00 Intake Total 1380 ml Balance 1380 ml Intake Oral 1380 ml Height (Feet): 5 Height (Inches): 6.00 Weight (Pounds): 183 Objective Current Medications Medications (Trade) Dose Ordered Sig/Swetha Route PRN Reason Start Time Stop Time Status Last Admin Dose Admin Acetaminophen (Tylenol) 500 mg Q4H PRN ORAL Mild Pain (Pain Scale 1-3) 06/22/20 00:00 07/22/20 00:00 Dexamethasone Sodium Phosphate (Decadron 4mg/ml vial) 6 mg DAILY IVP 06/22/20 09:00 06/30/20 09:01 06/26/20 08:23 Dextrose (Dextrose 50%) 25 ml Q30M PRN IV Hypoglycemia 06/24/20 13:45 09/22/20 13:44 Dextrose (Dextrose 50%) 50 ml Q30M PRN IV Hypoglycemia 06/24/20 13:45 09/22/20 13:44 Enoxaparin Sodium (Lovenox) 40 mg DAILY SUBQ 06/22/20 09:00 09/20/20 08:59 06/26/20 08:28 Guaifenesin (Robitussin) 100 mg Q4H PRN ORAL For Cough 06/22/20 11:45 09/20/20 11:44 06/23/20 21:37 Insulin Aspart (NovoLOG) BEFORE MEALS AND HS SUBQ 06/24/20 16:30 09/22/20 16:29 06/26/20 21:22 Insulin Aspart (NovoLOG) 20 units TIWM SUBQ 06/26/20 12:00 09/22/20 11:59 06/26/20 16:55 Insulin Detemir (Levemir) 20 units BID SUBQ 06/26/20 09:00 09/22/20 20:59 06/26/20 17:32 Assessment/Plan Problem List: (1) Diabetes mellitus out of control ICD Codes: E11.65 - Type 2 diabetes mellitus with hyperglycemia SNOMED: 81885874, 883584186 (2) Pneumonia due to COVID-19 virus ICD Codes: U07.1 - COVID-19; J12.89 - Other viral pneumonia SNOMED: 534178178744724604 (3) Hypertension ICD Codes: I10 - Essential (primary) hypertension SNOMED: 94414349 Qualifiers: Qualified Codes: I10 - Essential (primary) hypertension Status: progressing Assessment/Plan: continue Levemir 20 units bid continue Novolog 20 units ac tid continue sliding scale ac hs Petr Aguirre MD Jun 27, 2020 06:40
--- NOTE | 2020-06-27 06:58 | Hematology/Onc Progress Note ---
Assessment/Plan Assessment/Plan Assessment and recs # Elevated ddimer is due to covid19++++ -> duplex lower legs ordered to r/o dvt-->neg --> Pneumonia due to COVID-19 virus --> cxr with r>l infiltrates --> per pulm # COVID-19 pneumonia. --> CXR 06/21/2020 Patchy bilateral peripheral airspace opacities, right greater than left. --> s/p NRB 12L; s/p failed attempt of 4 lpm NC, desaturated down to 89-90%, per RN; --> on Decadron,Abx --> remdesivir per ID specialist --> cont oxygen support # Hypoxemia. # Hyperglycemia. # DVT PPx --> Lovenox Appreciate consultation and dw RN Subjective Constitutional: Denies: no symptoms, chills, fever, malaise, weakness, other HEENT: Denies: no symptoms, eye pain, blurred vision, tearing, double vision, ear pain, ear discharge, nose pain, nose congestion, throat pain, throat swelling, mouth pain, mouth swelling, other Cardiovascular: Denies: no symptoms, chest pain, edema, irregular heart rate, lightheadedness, palpitations, syncope, other Respiratory: Denies: no symptoms, cough, shortness of breath, SOB with excertion, SOB at rest, sputum, wheezing, other Gastrointestinal/Abdominal: Denies: no symptoms, abdomen distended, abdominal pain, black stools, tarry stools, blood in stool, constipated, diarrhea, difficulty swallowing, nausea, poor appetite, poor fluid intake, rectal bleeding, vomiting, other Genitourinary: Denies: no symptoms, burning, discharge, frequency, flank pain, hematuria, incontinence, pain, urgency, other Endocrine: Denies: no symptoms, excessive sweating, flushing, intolerance to cold, intolerance to heat, increased hunger, increased thirst, increased urine, unexplained weight gain, unexplained weight loss, other Allergies: Coded Allergies: No Known Allergies (Unverified , 05/12/12) Subjective 06/27 meds noted, no bleeding, labs reviewed, Objective Objective Current Medications Medications (Trade) Dose Ordered Sig/Swetha Route PRN Reason Start Time Stop Time Status Last Admin Dose Admin Acetaminophen (Tylenol) 500 mg Q4H PRN ORAL Mild Pain (Pain Scale 1-3) 06/22/20 00:00 07/22/20 00:00 Dexamethasone Sodium Phosphate (Decadron 4mg/ml vial) 6 mg DAILY IVP 06/22/20 09:00 06/30/20 09:01 06/26/20 08:23 Dextrose (Dextrose 50%) 25 ml Q30M PRN IV Hypoglycemia 06/24/20 13:45 09/22/20 13:44 Dextrose (Dextrose 50%) 50 ml Q30M PRN IV Hypoglycemia 06/24/20 13:45 09/22/20 13:44 Enoxaparin Sodium (Lovenox) 40 mg DAILY SUBQ 06/22/20 09:00 09/20/20 08:59 06/26/20 08:28 Guaifenesin (Robitussin) 100 mg Q4H PRN ORAL For Cough 06/22/20 11:45 09/20/20 11:44 06/23/20 21:37 Insulin Aspart (NovoLOG) BEFORE MEALS AND HS SUBQ 06/24/20 16:30 09/22/20 16:29 06/26/20 21:22 Insulin Aspart (NovoLOG) 20 units TIWM SUBQ 06/26/20 12:00 09/22/20 11:59 06/26/20 16:55 Insulin Detemir (Levemir) 20 units BID SUBQ 06/26/20 09:00 09/22/20 20:59 06/26/20 17:32 Last 24 Hour Vital Signs Date Time Temp Pulse Resp B/P (MAP) Pulse Ox O2 Delivery O2 Flow Rate FiO2 06/27/20 06:00 97.6 66 18 128/81 (97) 94 06/27/20 04:00 97.6 66 18 128/81 (97) 94 06/27/20 00:00 98.0 64 20 120/81 (94) 99 06/26/20 21:00 Room Air 06/26/20 20:00 98.2 67 18 121/78 (92) 94 06/26/20 16:00 98.2 93 20 111/66 (81) 97 06/26/20 12:00 98.3 70 20 120/68 (85) 100 06/26/20 09:00 Room Air 06/26/20 08:00 98.6 90 20 120/76 (91) 95 06/26/20 04:00 97.5 64 20 123/80 (94) 95 06/25/20 21:00 Venturi Mask 15.0 06/25/20 20:00 97.5 73 20 135/67 (89) 95 06/25/20 16:00 96.0 73 20 145/75 (98) 100 06/25/20 12:00 97.3 74 18 124/64 (84) 94 06/25/20 09:00 Venturi Mask 15.0 06/25/20 08:00 97.9 75 18 109/66 (80) 92 Intake and Output 06/26/20 06/27/20 19:00 07:00 Intake Total 1380 ml Balance 1380 ml Intake Oral 1380 ml # Voids 1 Labs Test 06/24/20 16:42 06/24/20 21:22 06/25/20 05:12 06/25/20 06:00 White Blood Count 9.4 K/UL (4.8-10.8) Red Blood Count 4.63 M/UL (4.70-6.10) Hemoglobin 14.0 G/DL (14.2-18.0) Hematocrit 38.5 % (42.0-52.0) Mean Corpuscular Volume 83 FL (80-99) Mean Corpuscular Hemoglobin 30.3 PG (27.0-31.0) Mean Corpuscular Hemoglobin Concent 36.4 G/DL (32.0-36.0) Red Cell Distribution Width 13.2 % (11.6-14.8) Platelet Count 397 K/UL (150-450) Mean Platelet Volume 6.5 FL (6.5-10.1) Neutrophils (%) (Auto) 70.5 % (45.0-75.0) Lymphocytes (%) (Auto) 18.5 % (20.0-45.0) Monocytes (%) (Auto) 10.6 % (1.0-10.0) Eosinophils (%) (Auto) 0.1 % (0.0-3.0) Basophils (%) (Auto) 0.3 % (0.0-2.0) Sodium Level 132 MMOL/L (136-145) Potassium Level 4.2 MMOL/L (3.5-5.1) Chloride Level 99 MMOL/L (98-107) Carbon Dioxide Level 24 MMOL/L (21-32) Anion Gap 9 mmol/L (5-15) Blood Urea Nitrogen 28 mg/dL (7-18) Creatinine 0.8 MG/DL (0.55-1.30) Estimat Glomerular Filtration Rate > 60 mL/min (>60) Glucose Level 345 MG/DL (74-106) Calcium Level 8.5 MG/DL (8.5-10.1) Total Bilirubin 0.4 MG/DL (0.2-1.0) Direct Bilirubin 0.1 MG/DL (0.0-0.3) Aspartate Amino Transf (AST/SGOT) 22 U/L (15-37) Alanine Aminotransferase (ALT/SGPT) 39 U/L (12-78) Alkaline Phosphatase 138 U/L (46-116) Total Protein 6.3 G/DL (6.4-8.2) Albumin 2.1 G/DL (3.4-5.0) Globulin 4.2 g/dL Albumin/Globulin Ratio 0.5 (1.0-2.7) Test 06/26/20 04:00 White Blood Count 9.5 K/UL (4.8-10.8) Red Blood Count 4.56 M/UL (4.70-6.10) Hemoglobin 14.0 G/DL (14.2-18.0) Hematocrit 39.7 % (42.0-52.0) Mean Corpuscular Volume 87 FL (80-99) Mean Corpuscular Hemoglobin 30.8 PG (27.0-31.0) Mean Corpuscular Hemoglobin Concent 35.3 G/DL (32.0-36.0) Red Cell Distribution Width 12.1 % (11.6-14.8) Platelet Count 390 K/UL (150-450) Mean Platelet Volume 6.5 FL (6.5-10.1) Neutrophils (%) (Auto) 64.5 % (45.0-75.0) Lymphocytes (%) (Auto) 23.5 % (20.0-45.0) Monocytes (%) (Auto) 11.0 % (1.0-10.0) Eosinophils (%) (Auto) 0.6 % (0.0-3.0) Basophils (%) (Auto) 0.4 % (0.0-2.0) Sodium Level 134 MMOL/L (136-145) Potassium Level 3.9 MMOL/L (3.5-5.1) Chloride Level 101 MMOL/L (98-107) Carbon Dioxide Level 23 MMOL/L (21-32) Anion Gap 10 mmol/L (5-15) Blood Urea Nitrogen 25 mg/dL (7-18) Creatinine 0.9 MG/DL (0.55-1.30) Estimat Glomerular Filtration Rate > 60 mL/min (>60) Glucose Level 313 MG/DL (74-106) Calcium Level 8.1 MG/DL (8.5-10.1) Total Bilirubin 0.4 MG/DL (0.2-1.0) Direct Bilirubin < 0.1 MG/DL (0.0-0.3) Aspartate Amino Transf (AST/SGOT) 20 U/L (15-37) Alanine Aminotransferase (ALT/SGPT) 37 U/L (12-78) Alkaline Phosphatase 160 U/L (46-116) Total Protein 5.8 G/DL (6.4-8.2) Albumin 2.0 G/DL (3.4-5.0) Globulin 3.8 g/dL Albumin/Globulin Ratio 0.5 (1.0-2.7) Height (Feet): 5 Height (Inches): 6.00 Weight (Pounds): 183 Objective Sp02 EP Interpretation: reviewed, normal General: well appearing, GCS 15, mild distress - With dyspnea and anxiety Heent: normal pharynx, moist mucus membranes Respiratory: no wheezing - Slight expiratory phase increase, crackles Cardiovascular: regular rate, rhythm Gastrointestinal: normal inspection, normal bowel sounds, non tender, no mass, non-distended Genitourinary: no CVA tenderness Musculoskeletal: back normal, normal range of motion, gait/station normal Neurologic: alert, oriented x3, grossly normal Psychiatric: anxious Skin: no rash, warm/dry, other - Fully clothed Rebel Lainez MD Jun 27, 2020 06:58
[2020-06-27 08:00] VITALS: BP 115/67
[2020-06-27] MEDS: Enoxaparin 40mg Inj SUBQ SCH (09:36)
[2020-06-27] MEDS: Levemir Flexpen SUBQ SCH (09:37)
--- NOTE | 2020-06-27 11:47 | Pulmonology Progress Note ---
Subjective ROS Limited/Unobtainable: Yes Interval Events: he wakes up with sensation of "closed airways" along with itchness in arms Constitutional: Reports: no symptoms HEENT: Repors: no symptoms Respiratory: Reports: no symptoms Cardiovascular: Reports: no symptoms Gastrointestinal/Abdominal: Reports: no symptoms Allergies: Coded Allergies: No Known Allergies (Unverified , 05/12/12) Objective Last 24 Hour Vital Signs Date Time Temp Pulse Resp B/P (MAP) Pulse Ox O2 Delivery O2 Flow Rate FiO2 06/27/20 09:00 Room Air 06/27/20 08:00 97.9 76 20 115/67 (83) 97 06/27/20 06:00 97.6 66 18 128/81 (97) 94 06/27/20 04:00 97.6 66 18 128/81 (97) 94 06/27/20 00:00 98.0 64 20 120/81 (94) 99 06/26/20 21:00 Room Air 06/26/20 20:00 98.2 67 18 121/78 (92) 94 06/26/20 16:00 98.2 93 20 111/66 (81) 97 06/26/20 12:00 98.3 70 20 120/68 (85) 100 Intake and Output 06/26/20 06/27/20 19:00 07:00 Intake Total 1380 ml Balance 1380 ml Intake Oral 1380 ml # Voids 1 Objective 06/27/2020 saturating well on RA during the day; pt states he needs oxygen at night 06/26/2020 saturating well Venturi mask 15L; pt is off mask in bed; reports he needs oxygen "sometimes" 06/25/2020 saturating well on Venturi mask 15L; pt states he can be off venturi mask for 15-20 minutes before feeling short of breath again 06/24/2020 saturating well on NRB 12L; s/p failed attempt of 4 lpm NC, desaturated down to 89-90%, per RN; cont attempt weaning down oxygen while keeping SaO2 >92% 06/23/2020 saturating well on NRB 12L; s/p failed attempt of 4 lpm NC, desaturated down to 89-90%, per RN; cont attempt weaning down oxygen while keeping SaO2 >92% 06/22/2020 saturating well on NRB 15 L General Appearance: WD/WN, no acute distress HEENT: normocephalic, atraumatic Respiratory: chest wall non-tender, lungs clear Cardiovascular: normal rate, regular rhythm, no gallop/murmur Abdomen: soft, non tender Current Medications Medications (Trade) Dose Ordered Sig/Swetha Route PRN Reason Start Time Stop Time Status Last Admin Dose Admin Acetaminophen (Tylenol) 500 mg Q4H PRN ORAL Mild Pain (Pain Scale 1-3) 06/22/20 00:00 07/22/20 00:00 Dexamethasone Sodium Phosphate (Decadron 4mg/ml vial) 6 mg DAILY IVP 06/22/20 09:00 06/30/20 09:01 06/27/20 09:38 Dextrose (Dextrose 50%) 25 ml Q30M PRN IV Hypoglycemia 06/24/20 13:45 09/22/20 13:44 Dextrose (Dextrose 50%) 50 ml Q30M PRN IV Hypoglycemia 06/24/20 13:45 09/22/20 13:44 Enoxaparin Sodium (Lovenox) 40 mg DAILY SUBQ 06/22/20 09:00 09/20/20 08:59 06/27/20 09:36 Guaifenesin (Robitussin) 100 mg Q4H PRN ORAL For Cough 06/22/20 11:45 09/20/20 11:44 06/23/20 21:37 Insulin Aspart (NovoLOG) BEFORE MEALS AND HS SUBQ 06/24/20 16:30 09/22/20 16:29 06/26/20 21:22 Insulin Aspart (NovoLOG) 20 units TIWM SUBQ 06/26/20 12:00 09/22/20 11:59 06/26/20 16:55 Insulin Detemir (Levemir) 20 units BID SUBQ 06/26/20 09:00 09/22/20 20:59 06/27/20 09:37 Assessment/Plan Assessment/Plan 1. COVID-19 pneumonia. - CXR 06/21/2020 Patchy bilateral peripheral airspace opacities, right greater than left. - s/p NRB 12L; s/p failed attempt of 4 lpm NC, desaturated down to 89-90%, per RN; - currently on 15L oxygen via Venturi mask - Pt is saturating mid-90's on RA + venturi mask oxygen supplement; pt reports he still "needs oxygen at night"; pt refuses switching to NC stating he does much better with the Venturi mask - on Decadron - s/p broad-spectrum Abx - remdesivir per ID specialist - cont oxygen support; wean as tolerated while keeping SaO2 >92% 2. Elevated inflammatory markers. 3. Hypoxemia. 4. Hyperglycemia. 5. ?Obstructive sleep apnea - Pt states he woke up with sensations of "closed airways" associated with itchiness in his arms that self-resolves in 30 minutes - Denies hx of allergies, asthma, sleep apnea - outpatient sleep study recommended DVT PPx -Lovenox We will follow. The care of this patient was discussed with my supervising physician Time spent for this encounter was approximately 31 minutes Colt Wooten Jun 27, 2020 11:47
[2020-06-27 12:00] VITALS: BP 120/81
--- NOTE | 2020-06-27 12:33 | Infectious Diseases Prog Note ---
Assessment/Plan Assessment/Plan IMPRESSION: 1. COVID-19 disease, Resoved hypoxemia 2. Diabetes mellitus with hyperglycemia 3. Hypertension. 4. Hyponatremia. 5. Lymphopenia. RECOMMENDATIONS: Discontinue dexamethasone. Finished Remdesivir. can be discharged to home Subjective ROS Limited/Unobtainable: No Constitutional: Reports: no symptoms, other - feels better Respiratory: Reports: dry cough; Denies: shortness of breath Gastrointestinal/Abdominal: Reports: no symptoms Genitourinary: Reports: no symptoms Neurologic: Reports: no symptoms Allergies: Coded Allergies: No Known Allergies (Unverified , 05/12/12) Objective Last 24 Hour Vital Signs Date Time Temp Pulse Resp B/P (MAP) Pulse Ox O2 Delivery O2 Flow Rate FiO2 06/27/20 12:00 97.4 70 20 120/81 (94) 98 06/27/20 09:00 Room Air 06/27/20 08:00 97.9 76 20 115/67 (83) 97 06/27/20 06:00 97.6 66 18 128/81 (97) 94 06/27/20 04:00 97.6 66 18 128/81 (97) 94 06/27/20 00:00 98.0 64 20 120/81 (94) 99 06/26/20 21:00 Room Air 06/26/20 20:00 98.2 67 18 121/78 (92) 94 06/26/20 16:00 98.2 93 20 111/66 (81) 97 Height (Feet): 5 Height (Inches): 6.00 Weight (Pounds): 183 HEENT: mucous membranes moist Respiratory/Chest: lungs clear Cardiovascular: normal rate Abdomen: soft, non tender Extremities: no edema Neurologic/Psychiatric: alert, oriented x 3, responsive Current Medications Medications (Trade) Dose Ordered Sig/Swetha Route PRN Reason Start Time Stop Time Status Last Admin Dose Admin Acetaminophen (Tylenol) 500 mg Q4H PRN ORAL Mild Pain (Pain Scale 1-3) 06/22/20 00:00 07/22/20 00:00 Dexamethasone Sodium Phosphate (Decadron 4mg/ml vial) 6 mg DAILY IVP 06/22/20 09:00 06/30/20 09:01 06/27/20 09:38 Dextrose (Dextrose 50%) 25 ml Q30M PRN IV Hypoglycemia 06/24/20 13:45 09/22/20 13:44 Dextrose (Dextrose 50%) 50 ml Q30M PRN IV Hypoglycemia 06/24/20 13:45 09/22/20 13:44 Enoxaparin Sodium (Lovenox) 40 mg DAILY SUBQ 06/22/20 09:00 09/20/20 08:59 06/27/20 09:36 Guaifenesin (Robitussin) 100 mg Q4H PRN ORAL For Cough 06/22/20 11:45 09/20/20 11:44 06/23/20 21:37 Insulin Aspart (NovoLOG) BEFORE MEALS AND HS SUBQ 06/24/20 16:30 09/22/20 16:29 06/27/20 12:25 Insulin Aspart (NovoLOG) 20 units TIWM SUBQ 06/26/20 12:00 09/22/20 11:59 06/27/20 12:26 Insulin Detemir (Levemir) 20 units BID SUBQ 06/26/20 09:00 09/22/20 20:59 06/27/20 09:37 Stevenson Buckley MD Jun 27, 2020 12:33
--- NOTE | 2020-07-01 11:23 | Discharge Summary ---
Discharge Summary Discharge Summary _ DATE OF ADMISSION: 06/21/2020 DATE OF DISCHARGE: 06/27/2020 DISCHARGED BY: Dr. Bowman REASON FOR ADMISSION: 54 years old male with no significant past medical history, presented to the hospital with dyspnea. Patient apparently was tested positive for COVID 19 last week. Patient reported intermittent fevers , treated with Ibuprofen. Patient reported nonbloody vomited and had prior nonbloody diarrhea. Patient was able to keep liquids. Upon evaluation vital signs revealed hypoxiA; patient required supplemental oxy gen. Blood pressure was elevated -199/98 Chest x-ray revealed patchy bilateral peripheral airspace opacity; right greater than left. Laboratory work-up revealed no leukocytosis , stable hemoglobin, hematocrit and platelet count. Ferritin 640, CRP 18.9, LDH 324, D-dimer 0.7. Glucose 213. Troponin negative In the emergency department patient received Decadron, losartan, empiric antibiotics/ Rocephin and azithromycin . In ED patient desaturated on 5 L of oxygen via nasal cannula , and subsequently was placed on 100% nonrebreather mask . Patient was admitted for hypoxia , pneumonia and hypertension. CONSULTANTS: sugar refinery supervisor Dr. Aguirre pulmonary Dr Maravilla ID specialist Dr. Stevenson Buckley manager utility/oncologist Dr. Lainez [facility] COURSE: Patient admitted to isolation room. ID specialist followed. Patient completed remdesivir and steroids. Anticoagulation with Lovenox provided. Antitussive provided as needed. Supplemental oxygen provided and titrated to keep pulse oximetry above 92%. As patient improved, patient was able to be weaned from nonrebreather mask to Venturi mask and then to room air. Fevers resolved. Venous duplex bilateral lower extremity revealed no evidence of acute DVT. After initial losartan , blood pressure improved and remained stable. Patient noted to have hyperglycemia. Hemoglobin A1c 10.7. Blood sugar was managed as per sugar refinery supervisor recommendations with long-acting Levemir, short acting pre meal NovoLog . Sliding scale of insulin was on board as needed. Diabetic diet and diabetic teaching provided. Hypoglycemia protocol was in place. Blood sugar improved. Patient possible may have bstructive sleep apnea, given subjective information, he reported. Patient was advised to have outpatient sleep study test, when off isolation. Patient clinically stabilized and was ready for discharge home , continue self- isolation for total of 10 days. FINAL DIAGNOSES: COVID-19 pneumonia Acute hypoxemic respiratory failure, requiring NRM-resolved Diabetes mellitus [id number] with hyperglycemia Hypertension Lymphopenia Possible obstructive sleep apnea Hypertension DISCHARGE MEDICATIONS: See Medication Reconciliation list. DISCHARGE INSTRUCTIONS: Patient was discharged home. Continue self-isolation as instructed I have been assigned to dictate discharge summary for this account. I was not involved in the patient's management. Jeimy Arnett NP Jul 01, 2020 11:23
== END 2020-06-27 15:10 | disposition home or self-care (01) | DRG 137 ==
LOC: EMR 19:50 → 4E 20:00 → EDBEDREQ 23:07
DX: U07.1 COVID-19 (principal); J12.89 Other viral pneumonia; E87.1 Hypo-osmolality and hyponatremia; E11.65 Type 2 diabetes mellitus with hyperglycemia; I10 Essential (primary) hypertension; D72.810 Lymphocytopenia; E46 Unspecified protein-calorie malnutrition; J96.01 Acute respiratory failure with hypoxia; G47.33 Obstructive sleep apnea (adult) (pediatric)
CPT/HCPCS: 36415; 71045; 80053; 82248; 82550; 82553; 82728; 82962; 83036; 83605; 83615; 83690; 83735; 83880; 84484; 85007; 85025; 85379; 85610; 85730; 86140; 87040; 93005; 93970; 96361; 96365; 96367; 96375; 99291; J1815; J3490; J7030; S5561; U0002